=== PATIENT | female | born 1945 | race Caucasian/White ===

== ENCOUNTER 2018-02-25 15:09 | Emergency (ER) ==
[2018-02-25 15:15] VITALS: BP 134/66; TEMP 99; BMI 23.6
--- NOTE | 2018-02-25 16:09 | ED.PDOC ---
General ED Provider: Dr. ROSA AMBROCIO Chief Complaint: Foot Pain/Injury Stated Complaint: LEFT FOOT PAIN Time Seen by Physician: 15:18 (TRAUMA 1 DAY AGO ) Information Source: Patient Exam Limitations: No limitations Primary Care Provider: MAURY ROBLES Nursing and Triage Documentation Reviewed and Agree: Yes Does patient meet sepsis criteria?: Yes If yes, has appropriate treatment been initiated?: No (SEE WITH SHARON AT ALL TIMES ) System Inflammatory Response Syndrome: Not Applicable Sepsis Protocol: For patient's 13 years and over: Temp is 96.8 and below OR 101 and greater Pulse >90 BPM Resp >20/minute Acutely Altered Mental Status Are patient's symptoms suggestive of a new infection, such as: -Pneumonia -Skin, Soft Tissue -Endocarditis -UTI -Bone, Joint Infection -Implantable Device -Acute Abdominal Infection -Wound Infection -Meningitis -Blood Stream Catheter Infection -Unknown Musculoskeletal Complaint Exam - Ankle/Foot Complaint/Exam Location of Injury: Reports: Left, Foot Mechanism of Injury: Reports: Trauma Onset/Duration: 1 DAY Symptoms Are: Reports: Still present Onset of Pain: Reports: Hours Initial Severity: Mild Current Severity: Mild Location: Reports: Discrete (LEFT FOOT DORALY SEE PHOTO) Character: Reports: Aching Alleviating: Reports: Rest Aggravating: Reports: Movement Able to Bear Weight: Yes Associated Signs and Symptoms: Reports: Swelling, Redness. Denies: Bruising, Fever, Weakness, Numbness, Tingling Lower Extremity Findings: Present: Erythema, Warmth Achilles Tendon Abnormality: No Tenderness: Present: Midfoot, Metatarsals, Digits. Absent: Medial malleolus, Lateral malleolus, Heel, Achilles insertion Limited Range of Motion: Present: Inversion, Eversion Differential Diagnosis: Closed Fracture, Gout, Sprain, Strain Review of Systems - Review Of Systems Constitutional: Reports: No symptoms Eyes: Reports: No symptoms Ears, Nose, Mouth, Throat: Reports: No symptoms Respiratory: Reports: No symptoms Cardiac: Reports: No symptoms GI: Reports: No symptoms : Reports: No symptoms Musculoskeletal: Reports: Joint pain (FOOT PAIN) Skin: Reports: No symptoms Neurological: Reports: No symptoms Endocrine: Reports: No symptoms Hematologic/Lymphatic: Reports: No symptoms All Other Systems: Reviewed and Negative Past Medical History - Past Medical History Previously Healthy: No Endocrine: Reports: Dyslipidemia Cardiovascular: Reports: None Respiratory: Reports: COPD Hematological: Reports: None Gastrointestinal: Reports: None Genitourinary: Reports: None, CKD Neuro/Psych: Reports: None Musculoskeletal: Reports: None Cancer: Reports: None Last Menstrual Period: unknown - Surgical History General Surgical History: Reports: Cholecystectomy - Family History Family History: Reports: Unknown - Social History Smoking Status: Current some day smoker, Light tobacco smoker Hx Substance Use: No Alcohol Screening: None Physical Exam - Physical Exam Appearance: Well-appearing, No pain distress, Well-nourished Eyes: JONATAN, EOMI, Conjunctiva clear ENT: Ears normal, Nose normal, Oropharynx normal Respiratory: Airway patent, Breath sounds clear, Breath sounds equal, Respirations nonlabored Cardiovascular: RRR, Pulses normal, No rub, No murmur GI/: Soft, Nontender, No masses, Bowel sounds normal, No Organomegaly Musculoskeletal: Normal strength, ROM intact, No edema, No calf tenderness Skin: Warm, Dry, Normal color Neurological: Sensation intact, Motor intact, Reflexes intact, Cranial nerves intact, Alert, Oriented Psychiatric: Affect appropriate, Mood appropriate Interpretation - Radiology Interpretation Radiology Interpretation By: ED Physician Radiology Results: Negative Critical Care Note - Critical Care Note Total Time (mins): 0 Course - Course Orders, Labs, Meds: Lab Review 02/25/18 16:27 Uric Acid 6.8 H Orders Category Date Time Status URIC ACID Stat LAB 02/25/18 16:27 Completed Dexamethasone 4 mg/ml Inj [Decadron 4 mg/ml Sdv] MEDS 02/25/18 17:22 Discontinued 8 mg IM ONCE STA FOOT, LEFT 3 VIEWS Stat RADS 02/25/18 16:06 Completed Medications Discontinued Medications Generic Name Dose Route Start Last Admin Trade Name Sara PRN Reason Stop Dose Admin Dexamethasone Sodium Phosphate 8 mg 02/25/18 17:22 Decadron 4 Mg/Ml Sdv IM 02/25/18 17:23 ONCE STA Vital Signs: Temp Pulse Resp BP Pulse Ox 02/25/18 15:10 99.0 F 78 20 134/66 95 Departure - Departure Time of Disposition: 17:24 Disposition: HOME SELF-CARE Discharge Problem: Injury of foot Gout attack Qualifiers: Gout site: foot Gout etiology: unspecified cause Instructions: Arthralgia (ED), Swollen Joint (ED), Metatarsalgia (DC), Low Purine Diet (ED), Gout (ED) Condition: Good Pt referred to PMD for follow-up: Yes IPMP verified?: No Additional Instructions: Please call your Family Physician as soon as possible to schedule a follow-up appointment. Prescriptions: Hydrocodone/Acetaminophen [[place] 10-325 Tablet] 1 each PO Q8HR #10 tablet Allergies/Adverse Reactions: Allergies No Known Allergies Allergy (Unverified 02/25/18 15:16) Home Medications: Ambulatory Orders Losartan Potassium 100 mg PO DAILY 02/18/14 Fesoterodine Fumarate [Toviaz] 8 mg PO DAILY 04/20/15 Pantoprazole Sodium [Protonix] 40 mg PO BID 04/20/15 Sucralfate Susp [Carafate] 2 tsp PO ACHS 04/20/15 Aspirin [Aspir-Low] 81 mg PO DAILY 02/25/18 Hydrocodone/Acetaminophen [[place] 10-325 Tablet] 1 each PO Q8HR #10 tablet Disposition Discussed With: Patient
--- NOTE | 2018-02-25 16:48 | DI ---
EXAM: Left foot three view HISTORY: Pain COMPARISON: None FINDINGS: Lucency at the base of the fifth proximal phalanx may represent a fracture, though only s een on one-view. Small plantar and posterior calcaneal spurs. Mild osteoarthritis first MTP joint wi th joint space narrowing osteophyte formation. Dystrophic calcifications adjacent to first MTP joint. No focal soft tissue abnormality. IMPERSSION: Lucency at base of fifth proximal phalanx may represent a fracture, though only seen on one-view. Recommend correlation for point tenderness.
[2018-02-25] MEDS ORDERED: DECADRON 4 MG/ML SDV IM STA (17:22)
== END 2018-02-25 17:50 | disposition home or self-care (01) ==
LOC: ED 15:09
DX: M10.9 Gout, unspecified (principal); M79.672 Pain in left foot; F17.210 Nicotine dependence, cigarettes, uncomplicated
CPT/HCPCS: 36415; 84550; 96372; 99282

== ENCOUNTER 2022-03-24 12:38 | Inpatient (IN) ==
[2022-03-24 12:50] VITALS: BMI 24.8
[2022-03-24] MEDS ORDERED: ZOFRAN 4 MG/2 ML IM ONE (13:22)
[2022-03-24] MEDS ORDERED: TORADOL IM ONE (13:22)
--- NOTE | 2022-03-24 13:26 | ED.PDOC ---
General ED Provider: Dr. JENNY CASTREJON MD Chief Complaint: Abdominal Pain Stated Complaint: mild diffuse abdominal cramps for 6 weeks, nonrad, hx appendectomy and GB surg, no injury, +NVD, no blood in stool, no fever, +fatigue Time Seen by Provider: 03/24/22 12:49 Mode of Arrival: Wheelchair Information Source: Patient Primary Care Provider: MAURY ROBLES Nursing and Triage Documentation Reviewed and Agree: Yes Does patient meet sepsis criteria?: No System Inflammatory Response Syndrome: Not Applicable Sepsis Protocol: For patient's 13 years and over: Temp is 96.8 and below OR 101 and greater Pulse >90 BPM Resp >20/minute Acutely Altered Mental Status Are patient's symptoms suggestive of a new infection, such as: -Pneumonia -Skin, Soft Tissue -Endocarditis -UTI -Bone, Joint Infection -Implantable Device -Acute Abdominal Infection -Wound Infection -Meningitis -Blood Stream Catheter Infection -Unknown Review of Systems Review Of Systems Constitutional: Reports Malaise and Weakness; Denies Fever Eyes: Denies Vision change Ears, Nose, Mouth, Throat: Denies Throat pain Respiratory: Denies Short of air Cardiac: Denies Chest pain GI: Reports Abdominal pain, Diarrhea, Nausea and Vomiting; Denies Rectal bleeding : Reports Frequency Musculoskeletal: Denies Neck pain Skin: Denies Rash or Cyanosis Neurological: Denies Cognitive dysfunction All Other Systems: Other [facility] Social History Smoking and tobacco status: Current every day smoker Female Reproductive History Menstrual Hx Hysterectomy: Yes Hx Tubal Ligation: No Physical Exam Physical Exam Appearance: Reports Ill-appearing Ill-appearing: Mild Pain Distress: None Eyes: Reports JONATAN, EOMI and Conjunctiva clear ENT: Reports Oropharynx normal Neck: Supple Respiratory: Reports Airway patent, Breath sounds clear and Breath sounds equal Cardiovascular: Reports RRR GI/: Reports Soft and Tender (no rebound) Musculoskeletal: Reports ROM intact and No edema Skin: Reports Warm and Dry Neurological: Reports Alert and Oriented Psychiatric: Reports Affect appropriate Interpretation Radiology Interpretation Radiology Interpretation By: Radiologist Exam Interpreted: CT Scan Xray Comments: no obstruction or free air Critical Care Note Critical Care Note Total Critical Care Time (mins): 0 Course Course Hematology/Chemistry: 03/24/22 13:30 03/24/22 13:30 Orders, Labs, Meds: Lab Review 03/24/22 03/24/22 03/24/22 13:30 13:30 13:30 WBC 5.19 RBC 3.64 L Hgb 11.4 L Hct 32.2 L MCV 88.5 MCH 31.3 H MCHC 35.4 RDW Coeff of Alfred 12.0 Plt Count 259 Immature Gran % (Auto) 0.4 Neut % (Auto) 62.4 Lymph % (Auto) 25.4 Hardy % (Auto) 7.7 Eos % (Auto) 3.5 Baso % (Auto) 0.6 Neut # (Auto) 3.2 Lymph # (Auto) 1.3 Hardy # (Auto) 0.4 Eos # (Auto) 0.2 Baso # (Auto) 0.0 Immature Gran # (Auto) 0.0 PT 11.3 H INR 1.09 Sodium 136.3 Potassium 2.78 L* Chloride 104.1 Carbon Dioxide 21.5 L Anion Gap 13.48 BUN 23.3 H Creatinine 1.49 H Estimated GFR (MDRD) 34.00 BUN/Creatinine Ratio 15.63 Glucose 112.1 H Lactic Acid Calcium 9.64 Total Bilirubin 0.97 AST 22.3 ALT 14.0 Alkaline Phosphatase 94.0 Troponin I 0.037 Total Protein 7.47 Albumin 4.37 Globulin 3.10 Albumin/Globulin Ratio 1.40 Urine Color Urine Clarity Urine pH Ur Specific [place] Urine Protein Urine Glucose (UA) Urine Ketones Urine Blood Urine Nitrite Urine Bilirubin Urine Urobilinogen Ur Leukocyte Esterase Ur Squamous Epith Cells Hyaline Casts Urine Opiates Screen Ur Oxycodone Screen Urine Methadone Screen Ur Propoxyphene Screen Ur Barbiturates Screen U Tricyclic Antidepress Ur Phencyclidine Scrn Ur Amphetamine Screen U Methamphetamines Scrn U Benzodiazepines Scrn Urine Cocaine Screen U Cannabinoids Screen Plasma/Serum Alcohol < 10.0 SARS CoV-2 RNA Rapid MARLENE 03/24/22 03/24/22 03/24/22 13:30 13:55 14:28 WBC RBC Hgb Hct MCV MCH MCHC RDW Coeff of Alfred Plt Count Immature Gran % (Auto) Neut % (Auto) Lymph % (Auto) Hardy % (Auto) Eos % (Auto) Baso % (Auto) Neut # (Auto) Lymph # (Auto) Hardy # (Auto) Eos # (Auto) Baso # (Auto) Immature Gran # (Auto) PT INR Sodium Potassium Chloride Carbon Dioxide Anion Gap BUN Creatinine Estimated GFR (MDRD) BUN/Creatinine Ratio Glucose Lactic Acid 0.91 Calcium Total Bilirubin AST ALT Alkaline Phosphatase Troponin I Total Protein Albumin Globulin Albumin/Globulin Ratio Urine Color Yellow Urine Clarity Clear Urine pH 5.5 Ur Specific [place] >=1.030 Urine Protein 1+ H Urine Glucose (UA) Negative Urine Ketones Negative Urine Blood Negative Urine Nitrite Negative Urine Bilirubin 2+ H Urine Urobilinogen 1.0 H Ur Leukocyte Esterase Negative Ur Squamous Epith Cells 10-20 Hyaline Casts 30-50 Urine Opiates Screen Ur Oxycodone Screen Urine Methadone Screen Ur Propoxyphene Screen Ur Barbiturates Screen U Tricyclic Antidepress Ur Phencyclidine Scrn Ur Amphetamine Screen U Methamphetamines Scrn U Benzodiazepines Scrn Urine Cocaine Screen U Cannabinoids Screen Plasma/Serum Alcohol SARS CoV-2 RNA Rapid MARLENE Negative 03/24/22 14:28 WBC RBC Hgb Hct MCV MCH MCHC RDW Coeff of Alfred Plt Count Immature Gran % (Auto) Neut % (Auto) Lymph % (Auto) Hardy % (Auto) Eos % (Auto) Baso % (Auto) Neut # (Auto) Lymph # (Auto) Hardy # (Auto) Eos # (Auto) Baso # (Auto) Immature Gran # (Auto) PT INR Sodium Potassium Chloride Carbon Dioxide Anion Gap BUN Creatinine Estimated GFR (MDRD) BUN/Creatinine Ratio Glucose Lactic Acid Calcium Total Bilirubin AST ALT Alkaline Phosphatase Troponin I Total Protein Albumin Globulin Albumin/Globulin Ratio Urine Color Urine Clarity Urine pH Ur Specific [place] Urine Protein Urine Glucose (UA) Urine Ketones Urine Blood Urine Nitrite Urine Bilirubin Urine Urobilinogen Ur Leukocyte Esterase Ur Squamous Epith Cells Hyaline Casts Urine Opiates Screen Negative Ur Oxycodone Screen Negative Urine Methadone Screen Negative Ur Propoxyphene Screen Negative Ur Barbiturates Screen Negative U Tricyclic Antidepress Negative Ur Phencyclidine Scrn Negative Ur Amphetamine Screen Negative U Methamphetamines Scrn Negative U Benzodiazepines Scrn Negative Urine Cocaine Screen Negative U Cannabinoids Screen Negative Plasma/Serum Alcohol SARS CoV-2 RNA Rapid MARLENE Orders Category Date Time Status EKG-(ED ONLY) Stat CARDIO 03/24/22 13:22 Completed BLOOD ALCOHOL Stat LAB 03/24/22 13:30 Completed CBC W/ AUTO DIFF Stat LAB 03/24/22 13:30 Completed CMP [COMPREHENSIVE METABOLIC PANEL] Stat LAB 03/24/22 13:30 Completed DRUG SCREEN, URINE, RAPID Stat LAB 03/24/22 14:28 Completed LACTIC ACID Stat LAB 03/24/22 13:30 Completed PT WITH INR Stat LAB 03/24/22 13:30 Completed SARS COV-2 RNA RAPID MARLENE Stat LAB 03/24/22 13:55 Completed TROPONIN I Stat LAB 03/24/22 13:30 Completed URINALYSIS C & S IF INDICATED Stat LAB 03/24/22 14:28 Completed Ketorolac Tromethamine [Toradol] MEDS 03/24/22 13:22 Discontinued 30 mg IM ONCE ONE Ondansetron HCl/Pf [Zofran 4 mg/2 ml] MEDS 03/24/22 13:22 Discontinued 4 mg IM ONCE ONE Potassium Chloride [K-Dur] MEDS 03/24/22 14:06 Discontinued 40 meq PO ONCE ONE Sodium Chloride 0.9% [Sodium Chloride] 1,000 ml MEDS 03/24/22 14:[address]i n[address] IV BOLUS CT ABDOMEN/PELVIS WO CONTRAST Stat RADS 03/24/22 13:22 Completed Medications Discontinued Medications Generic Name Dose Route Start Last Admin Trade Name Freq PRN Reason Stop Dose Admin Sodium Chloride 1,000 mls @ 1,000 mls/hr 03/24/22 14:18 03/24/22 14:31 Sodium Chloride IV 03/24/22 15:17 1,000 mls/hr BOLUS STA Administration Ketorolac Tromethamine 30 mg 03/24/22 13:22 03/24/22 13:52 Ketorolac Tromethamine 30 Mg/Ml Vial IM 03/24/22 13:23 30 mg ONCE ONE Administration Ondansetron HCl 4 mg 03/24/22 13:22 03/24/22 13:51 Ondansetron Hcl/Pf 4 Mg/2 Ml Sdv IM 03/24/22 13:23 4 mg ONCE ONE Administration Potassium Chloride 40 meq 03/24/22 14:06 03/24/22 14:21 Potassium Chloride 20 Meq Tab PO 03/24/22 14:07 40 meq ONCE ONE Administration Vital Signs: Temp Pulse Resp BP Pulse Ox 03/24/22 12:43 97.8 F 93 H 18 118/69 95 Discharge Plan Discharge Patient Disposition: PLACED OBSERVATION Discharge Problem: Acute hypokalemia, Acute dehydration, Vomiting Prescriptions: No Action losartan 100 MG tablet 100 mg PO DAILY sucralfate 1 GM/10 ML suspension 2 tsp PO ACHS Label Comments: stopped taking on the due to up coming test pantoprazole [Protonix] 40 MG tablet,delayed release (DR/EC) 40 mg PO BID fesoterodine [Toviaz] 8 MG tablet extended release 24 hr 8 mg PO DAILY aspirin [Aspir-Low] 81 MG tablet,delayed release (DR/EC) 81 mg PO DAILY hydrocodone-acetaminophen [[place]] 1 EACH tablet 1 ea PO Q8HR Qty: 10 0RF Did you review [place] [employer] GRADER?: No ED Provider: JENNY CASTREJON Condition: Stable Physician Progress Note: []tele obs admit to the hospitalist for iv hydration and potassium replacement
[2022-03-24 13:39] LABS: BASOPHILS % (AUTO) 0.6 % (0.0-3.0); EOSINOPHILS # (AUTO) 0.2 K/ul (0.0-0.7); EOSINOPHILS % (AUTO) 3.5 % (0.0-7.0); HEMATOCRIT 32.2 % (37.0-47.0); HEMOGLOBIN 11.4 g/dl (12.0-16.0); IMMATURE GRANULOCYTE % (AUTO) 0.4 % (0.0-5.0); LYMPHOCYTES # (AUTO) 1.3 K/uL (0.60-3.4); LYMPHOCYTES % (AUTO) 25.4 (10.0-50.0); MEAN CORPUSCULAR HEMOGLOBIN 31.3 pg (27.0-31.0); MEAN CORPUSCULAR HGB CONC 35.4 (31.8-35.4); MEAN CORPUSCULAR VOLUME 88.5 fl (81.0-99.0); MONOCYTES # (AUTO) 0.4 K/uL (0.4-2.0); MONOCYTES % (AUTO) 7.7 (0-10); NEUTROPHILS # (AUTO) 3.2 K/ul (2.0-6.9); NEUTROPHILS % (AUTO) 62.4 % (42.2-75.2); PLATELET COUNT 259 10^3/uL (140-440); RED BLOOD COUNT 3.64 10^6/ul (4.20-5.40); WHITE BLOOD COUNT 5.19 K/ul (4.6-10.2)
[2022-03-24 13:51] LABS: PROTHROMBIN TIME 11.3 SEC (9.3-11.0)
[2022-03-24 13:52] LABS: ALBUMIN 4.37 g/dL (3.5-5.0); ASPARTATE AMINO TRANSFERASE 22.3 U/L (14-36); BILIRUBIN,TOTAL 0.97 mg/dL (0.2-1.3); BLOOD UREA NITROGEN 23.3 mg/dL (7-17); CALCIUM 9.64 mg/dL (8.4-10.2); CARBON DIOXIDE 21.5 mmol/L (22-30.0); CHLORIDE 104.1 mmol/L (98-107); CREATININE 1.49 mg/dL (0.60-1.30); GLUCOSE 112.1 mg/dL (74-106); SODIUM 136.3 mmol/L (134.5-145); TOTAL PROTEIN 7.47 g/dL (6.3-8.2)
[2022-03-24 14:01] LABS: BLOOD ALCOHOL < 10.0 mg/dL (0.0-50.0); POTASSIUM 2.78 mmol/L (3.5-5.1)
[2022-03-24 14:02] LABS: TROPONIN I 0.037 ng/ml (0.0000-0.120)
[2022-03-24] MEDS ORDERED: K-DUR PO ONE (14:06)
[2022-03-24] MEDS ORDERED: SODIUM CHLORIDE 1,000 ML IV STA (14:18)
[2022-03-24 14:50] LABS: BILIRUBIN,URINE 2+ (NEGATIVE); CLARITY,URINE Clear (CLEAR); COLOR,URINE Yellow (YELLOW); GLUCOSE, URINE (UA) Negative (NEGATIVE); KETONES,URINE Negative (NEGATIVE); LEUKOCYTE ESTERASE ,URINE Negative (NEGATIVE); NITRITE,URINE Negative (NEGATIVE); PH,URINE 5.5 (5-9); PROTEIN,URINE 1+ (NEGATIVE); URINE, BLOOD Negative (NEGATIVE)
[2022-03-24 14:57] LABS: HYALINE CASTS, URINE 30-50 (NOT PRESENT)
[2022-03-24 14:59] LABS: AMPHETAMINE SCREEN,URINE NEGATIVE (NEGATIVE); BARBITURATE SCREEN,URINE NEGATIVE (NEGATIVE); BENZODIAZEPINES SCREEN,URINE NEGATIVE (NEGATIVE); CANNABINOID SCREEN,URINE NEGATIVE (NEGATIVE); COCAIN SCREEN,URINE NEGATIVE (NEGATIVE); METHADONE URINE SCREEN NEGATIVE (NEGATIVE); METHAMPHETAMINES SCREEN,URINE NEGATIVE (NEGATIVE); OPIATE SCREEN,URINE NEGATIVE (NEGATIVE); OXYCODONE URINE SCREEN NEGATIVE (NEGATIVE); PHENCYCLIDINE SCREEN,URINE NEGATIVE (NEGATIVE); PROPOXYPHENE URINE SCREEN NEGATIVE (NEGATIVE); TRICYCLIC ANTIDEPRESSANTS URIN NEGATIVE (NEGATIVE)
--- NOTE | 2022-03-24 15:28 | CT ---
EXAM: CT abdomen pelvis without intravenous contrast 03/24/2022. Sagittal and coronal reformatted i mages obtained HISTORY: Abdominal pain. Nausea vomiting COMPARISON: 04/20/2015 FINDINGS: The liver shows no acute abnormality. The gallbladder has been removed. The adrenal glan ds and kidneys show no acute abnormality. There is no hydronephrosis. Bilateral benign-appearing re nal cysts. The spleen and pancreas show no acute abnormality. There is no bowel obstruction. No evidence of appendicitis. Unremarkable urinary bladder. No free air. No free fluid. IMPRESSION: 1. No urinary or bowel obstruction 2. Benign-appearing renal cysts 3. Status post cholecystectomy. 4. No acute inflammatory process identified within the limitation of a noncontrast enhanced examinat ion. All CT scans are performed using dose optimization techniques as appropriate to the performed exam an d include at least one of the following: Automated exposure control, adjustment of the mA and/or kV according t o size, and the use of iterative reconstruction technique.
[2022-03-24] MEDS ORDERED: ZOFRAN 4 MG/2 ML IVP PRN (15:41)
[2022-03-24] MEDS: PROTONIX PO SCH (18:56)
[2022-03-24] MEDS: K-DUR PO SCH (18:56)
[2022-03-24] MEDS: SODIUM CHLORIDE 1,000 ML IV SCH (18:56)
[2022-03-24] MEDS: DITROPAN PO SCH (20:17)
[2022-03-24] MEDS: NAMENDA PO SCH (20:17)
[2022-03-24] MEDS: BENTYL PO SCH (20:17)
[2022-03-24] MEDS ORDERED: NORCO 10-325 PO SCH (21:00)
[2022-03-24] MEDS ORDERED: ATIVAN PO ONE (23:22)
[2022-03-25 05:11] LABS: BASOPHILS % (AUTO) 0.6 % (0.0-3.0); EOSINOPHILS # (AUTO) 0.2 K/ul (0.0-0.7); EOSINOPHILS % (AUTO) 3.4 % (0.0-7.0); HEMATOCRIT 31.7 % (37.0-47.0); HEMOGLOBIN 11.1 g/dl (12.0-16.0); IMMATURE GRANULOCYTE % (AUTO) 0.2 % (0.0-5.0); LYMPHOCYTES # (AUTO) 1.5 K/uL (0.60-3.4); LYMPHOCYTES % (AUTO) 29.4 (10.0-50.0); MEAN CORPUSCULAR HEMOGLOBIN 31.2 pg (27.0-31.0); MONOCYTES # (AUTO) 0.4 K/uL (0.4-2.0); MONOCYTES % (AUTO) 7.5 (0-10); NEUTROPHILS # (AUTO) 3.1 K/ul (2.0-6.9); NEUTROPHILS % (AUTO) 58.9 % (42.2-75.2); PLATELET COUNT 239 10^3/uL (140-440); RED BLOOD COUNT 3.56 10^6/ul (4.20-5.40); WHITE BLOOD COUNT 5.23 K/ul (4.6-10.2)
[2022-03-25 05:25] LABS: ALANINE AMINOTRANSFERASE 12.6 U/L (0-35); ALBUMIN 3.87 g/dL (3.5-5.0); ALKALINE PHOSPHATASE 83.9 U/L (53-141); ASPARTATE AMINO TRANSFERASE 23.9 U/L (14-36); BILIRUBIN,TOTAL 0.83 mg/dL (0.2-1.3); BLOOD UREA NITROGEN 20.2 mg/dL (7-17); CALCIUM 8.96 mg/dL (8.4-10.2); CARBON DIOXIDE 21.6 mmol/L (22-30.0); CHLORIDE 109.9 mmol/L (98-107); CREATININE 1.3 mg/dL (0.60-1.30); GLUCOSE 94.9 mg/dL (74-106); MAGNESIUM 1.39 mg/dL (1.6-2.3); POTASSIUM 3.3 mmol/L (3.5-5.1); SODIUM 139.9 mmol/L (134.5-145); TOTAL PROTEIN 6.72 g/dL (6.3-8.2)
[2022-03-25] MEDS: PROTONIX PO SCH ×2 (05:49→16:49)
[2022-03-25] MEDS: SODIUM CHLORIDE 1,000 ML IV SCH ×2 (05:57→18:34)
[2022-03-25] MEDS: ASPIRIN EC PO SCH (08:07)
[2022-03-25] MEDS: NAMENDA PO SCH ×2 (08:07→20:12)
[2022-03-25] MEDS: NEURONTIN PO SCH (08:07)
[2022-03-25] MEDS: K-DUR PO SCH ×2 (08:07→16:49)
[2022-03-25] MEDS: BENTYL PO SCH ×3 (08:07→20:12)
[2022-03-25] MEDS: DITROPAN PO SCH ×2 (08:07→20:12)
--- NOTE | 2022-03-25 08:53 | PCM.PROG ---
Date Seen by Provider: 03/25/22 Time Seen by Provider: 08:00 Subjective: Patient confused overnight and not sleeping. She was found to be out of bed and wandering in the [place]. No complaints. Objective: Vitals: T=97.8 F, P=92, R=18, BC=480/70, SPO2=96 Patient somnolent, though arouses easily. HEENT: [] Neck: [] Lungs: [] Clear and BS equal CVS: []RRR Abdomen: [] Soft and nontender. Nondistended. Extremities: [] Neurological: [] Confused. Cooperative. Skin: [] Lab/Tests/Diagnostic Imaging: [] (1) Vomiting: Status: Acute Code(s): R11.10 - Vomiting, unspecified SNOMED Code(s): 871290863 Assessment: Vomiting resolved and patient tolerating PO intake. (2) Acute hypokalemia: Status: Acute Code(s): E87.6 - Hypokalemia SNOMED Code(s): 70486112 Assessment: Potassium 3.3 this morning. (3) Acute dehydration: Status: Acute Code(s): E86.0 - Dehydration SNOMED Code(s): 77101100 Assessment: Hydration level improved. Continue IV fluids today. (4) Low magnesium level: Status: Acute Code(s): R79.0 - Abnormal level of blood mineral SNOMED Code(s): 479527901 (5) Acute delirium: Status: Acute Code(s): R41.0 - Disorientation, unspecified SNOMED Code(s): 9719758 Plan: Replete potassium and magnesium. Continue IV fluids yet today. Will add remeron for delirium.
[2022-03-25] MEDS ORDERED: COZAAR PO SCH (09:00)
--- NOTE | 2022-03-25 09:01 | PCM.PROG ---
Objective: Vitals: T=97.8 F, P=92, R=18, OH=914/70, SPO2=96 HEENT: [] Neck: [] Lungs: [] CVS: [] Abdomen: [] Extremities: [] Neurological: [] Skin: [] Lab/Tests/Diagnostic Imaging: [] (1) Vomiting: Status: Acute Code(s): R11.10 - Vomiting, unspecified SNOMED Code(s): 108297627 (2) Acute hypokalemia: Status: Acute Code(s): E87.6 - Hypokalemia SNOMED Code(s): 20432219 (3) Acute dehydration: Status: Acute Code(s): E86.0 - Dehydration SNOMED Code(s): 26365378 (4) Low magnesium level: Status: Acute Code(s): R79.0 - Abnormal level of blood mineral SNOMED Code(s): 518222556 (5) Acute delirium: Status: Acute Code(s): R41.0 - Disorientation, unspecified SNOMED Code(s): 5970420
[2022-03-25] MEDS ORDERED: MAG-OX PO ONE (09:04)
[2022-03-25] MEDS: REMERON PO SCH (20:12)
[2022-03-25] MEDS: TYLENOL PO PRN (20:12)
[2022-03-26 05:17] LABS: BASOPHILS % (AUTO) 0.6 % (0.0-3.0); EOSINOPHILS # (AUTO) 0.2 K/ul (0.0-0.7); EOSINOPHILS % (AUTO) 3.7 % (0.0-7.0); HEMATOCRIT 32.1 % (37.0-47.0); HEMOGLOBIN 11.1 g/dl (12.0-16.0); IMMATURE GRANULOCYTE % (AUTO) 0.6 % (0.0-5.0); LYMPHOCYTES # (AUTO) 1.9 K/uL (0.60-3.4); LYMPHOCYTES % (AUTO) 35.5 (10.0-50.0); MEAN CORPUSCULAR HEMOGLOBIN 31.1 pg (27.0-31.0); MEAN CORPUSCULAR HGB CONC 34.6 (31.8-35.4); MEAN CORPUSCULAR VOLUME 89.9 fl (81.0-99.0); MONOCYTES # (AUTO) 0.3 K/uL (0.4-2.0); MONOCYTES % (AUTO) 5.9 (0-10); NEUTROPHILS # (AUTO) 2.9 K/ul (2.0-6.9); NEUTROPHILS % (AUTO) 53.7 % (42.2-75.2); PLATELET COUNT 240 10^3/uL (140-440); RDW COEFFICIENT OF VARIATION 12.2 % (11.6-14.8); RED BLOOD COUNT 3.57 10^6/ul (4.20-5.40); WHITE BLOOD COUNT 5.44 K/ul (4.6-10.2)
[2022-03-26] MEDS: PROTONIX PO SCH ×2 (05:36→16:45)
[2022-03-26 05:43] LABS: ALANINE AMINOTRANSFERASE 12.1 U/L (0-35); ALBUMIN 3.75 g/dL (3.5-5.0); ALKALINE PHOSPHATASE 85.5 U/L (53-141); ASPARTATE AMINO TRANSFERASE 25.1 U/L (14-36); BILIRUBIN,TOTAL 0.72 mg/dL (0.2-1.3); BLOOD UREA NITROGEN 12.8 mg/dL (7-17); CALCIUM 8.73 mg/dL (8.4-10.2); CARBON DIOXIDE 21.4 mmol/L (22-30.0); CHLORIDE 111.1 mmol/L (98-107); CREATININE 1.13 mg/dL (0.60-1.30); GLUCOSE 84.3 mg/dL (74-106); POTASSIUM 3.62 mmol/L (3.5-5.1); SODIUM 139.7 mmol/L (134.5-145); TOTAL PROTEIN 6.46 g/dL (6.3-8.2)
[2022-03-26] MEDS: ASPIRIN EC PO SCH (09:21)
[2022-03-26] MEDS: DITROPAN PO SCH ×2 (09:21→20:20)
[2022-03-26] MEDS: NEURONTIN PO SCH (09:21)
[2022-03-26] MEDS: NAMENDA PO SCH ×2 (09:21→20:20)
[2022-03-26] MEDS: K-DUR PO SCH ×2 (09:21→16:45)
[2022-03-26] MEDS: BENTYL PO SCH ×3 (09:21→20:20)
[2022-03-26] MEDS: SODIUM CHLORIDE 1,000 ML IV SCH (10:48)
--- NOTE | 2022-03-26 17:06 | PCM.PROG ---
Date Seen by Provider: 03/26/22 Time Seen by Provider: 17:02 Subjective: pt confused, believes the month is April, doesn't know who the President is Objective: Vitals: T=97.8 F, P=74, R=18, AE=876/80, CJO7=417 HEENT: []conjunctiva clear Neck: []supple Lungs: [] clear CVS: []RRR Abdomen: []soft and nontender Extremities: []warm and dry Neurological: []awake, oriented x 1 Skin: []pink Lab/Tests/Diagnostic Imaging: [] K+ 3.6 03/26 (1) Vomiting: Status: Acute Code(s): R11.10 - Vomiting, unspecified SNOMED Code(s): 721886605 (2) Acute hypokalemia: Status: Acute Code(s): E87.6 - Hypokalemia SNOMED Code(s): 65769978 (3) Acute dehydration: Status: Acute Code(s): E86.0 - Dehydration SNOMED Code(s): 38646066 (4) Low magnesium level: Status: Acute Code(s): R79.0 - Abnormal level of blood mineral SNOMED Code(s): 017111993 (5) Acute delirium: Status: Acute Code(s): R41.0 - Disorientation, unspecified SNOMED Code(s): 1050632 Plan: since the pt is confused and 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
--- NOTE | 2022-03-26 19:03 | CT ---
EXAM: CT head without contrast. HISTORY: Altered mental status. PROCEDURE: Contiguous axial CT images of the head without contrast with coronal and sagittal reforma ts. FINDINGS: There is diffuse cerebral atrophy. The ventricles and basal cisterns are normal in size an d configuration. No evidence of mass or midline shift. No intracranial hemorrhage or evidence of la rge vessel infarct. No extra-axial fluid collection. There are chronic small vessel ischemic change s in the white matter. There is mucosal thickening in the paranasal sinuses. The mastoid air cells are normal in appearance. Redemonstrated is 1.4 x 0.6 cm nodule in the right parietal scalp compared with CT of 02/18/2014. Impression: No intracranial hemorrhage or evidence of large vessel infarct. Chronic small vessel ischemic changes. Diffuse cerebral atrophy. Paranasal sinusitis. Chronic nodule in the right parietal scalp. All CT scans are performed using dose optimization techniques as appropriate to the performed exam an d include at least one of the following: Automated exposure control, adjustment of the mA and/or kV according t o size, and the use of iterative reconstruction technique.
[2022-03-26] MEDS: REMERON PO SCH (20:20)
[2022-03-27] MEDS: SODIUM CHLORIDE 1,000 ML IV SCH ×2 (01:45→16:28)
[2022-03-27] MEDS ORDERED: ATIVAN PO ONE (02:11)
[2022-03-27 05:03] LABS: BASOPHILS % (AUTO) 0.4 % (0.0-3.0); EOSINOPHILS # (AUTO) 0.2 K/ul (0.0-0.7); EOSINOPHILS % (AUTO) 3.9 % (0.0-7.0); HEMATOCRIT 31.9 % (37.0-47.0); HEMOGLOBIN 11.3 g/dl (12.0-16.0); IMMATURE GRANULOCYTE % (AUTO) 0.4 % (0.0-5.0); LYMPHOCYTES # (AUTO) 1.4 K/uL (0.60-3.4); LYMPHOCYTES % (AUTO) 28.2 (10.0-50.0); MEAN CORPUSCULAR HEMOGLOBIN 31.7 pg (27.0-31.0); MEAN CORPUSCULAR HGB CONC 35.4 (31.8-35.4); MEAN CORPUSCULAR VOLUME 89.4 fl (81.0-99.0); MONOCYTES # (AUTO) 0.4 K/uL (0.4-2.0); MONOCYTES % (AUTO) 7.1 (0-10); NEUTROPHILS # (AUTO) 2.9 K/ul (2.0-6.9); PLATELET COUNT 235 10^3/uL (140-440); RDW COEFFICIENT OF VARIATION 12.3 % (11.6-14.8); RED BLOOD COUNT 3.57 10^6/ul (4.20-5.40)
[2022-03-27] MEDS ORDERED: VASOTEC IV IVP STA (05:12)
[2022-03-27 05:17] LABS: ALANINE AMINOTRANSFERASE 11.6 U/L (0-35); ALBUMIN 3.79 g/dL (3.5-5.0); ALKALINE PHOSPHATASE 78.6 U/L (53-141); ASPARTATE AMINO TRANSFERASE 24.7 U/L (14-36); BILIRUBIN,TOTAL 0.7 mg/dL (0.2-1.3); BLOOD UREA NITROGEN 7.4 mg/dL (7-17); CALCIUM 8.81 mg/dL (8.4-10.2); CARBON DIOXIDE 24.6 mmol/L (22-30.0); CHLORIDE 109.6 mmol/L (98-107); CREATININE 0.92 mg/dL (0.60-1.30); GLUCOSE 95.7 mg/dL (74-106); POTASSIUM 3.65 mmol/L (3.5-5.1); SODIUM 139.1 mmol/L (134.5-145); TOTAL PROTEIN 6.61 g/dL (6.3-8.2)
[2022-03-27] MEDS: PROTONIX PO SCH ×2 (05:40→17:29)
[2022-03-27] MEDS ORDERED: COZAAR PO SCH (09:00)
[2022-03-27] MEDS: ASPIRIN EC PO SCH (09:27)
[2022-03-27] MEDS: BENTYL PO SCH ×3 (09:27→20:15)
[2022-03-27] MEDS: NEURONTIN PO SCH (09:28)
[2022-03-27] MEDS: NAMENDA PO SCH ×2 (09:29→20:15)
[2022-03-27] MEDS: K-DUR PO SCH ×2 (09:29→17:30)
[2022-03-27] MEDS: DITROPAN PO SCH ×2 (09:30→20:15)
[2022-03-27] MEDS ORDERED: MAG-OX PO ONE (09:35)
--- NOTE | 2022-03-27 10:18 | PCM.PROG ---
Date Seen by Provider: 03/27/22 Time Seen by Provider: 09:00 Subjective: Patient has no complaints. Diarrhea resolved and tolerating PO intake. Delirium improved. Objective: Vitals: T=97.4 F, P=84, R=9, ED=512/94, SPO2=98 Patient alert and answers simple questions and follows simple commands. She is confused. HEENT: [] Neck: [] Lungs: [] Clear. BS equal. CVS: [] RRR Abdomen: []Abdomen soft, nondistended and nontender. Extremities: [] Neurological: []Patient at baseline mental status. Skin: [] Lab/Tests/Diagnostic Imaging: [] (1) Vomiting: Status: Acute Code(s): R11.10 - Vomiting, unspecified SNOMED Code(s): 515937300 Assessment: resolved (2) Acute hypokalemia: Status: Acute Code(s): E87.6 - Hypokalemia SNOMED Code(s): 37365986 Assessment: Potassium repleted (3) Acute dehydration: Status: Acute Code(s): E86.0 - Dehydration SNOMED Code(s): 34521904 Assessment: Euvolemic (4) Low magnesium level: Status: Acute Code(s): R79.0 - Abnormal level of blood mineral SNOMED Code(s): 103040893 Assessment: Magnesium still mildly decreased. (5) Acute delirium: Status: Acute Code(s): R41.0 - Disorientation, unspecified SNOMED Code(s): 9295592 Assessment: Delirium improved with remeron. Plan: Magnesium 800mg oral prior to discharge. Delirium resolved. 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 Believe that they would benefit from home health;not certain that she can provide appropriate care for herself or her . Will also ask for OT and PT evaluation and home nursing to see.
--- NOTE | 2022-03-27 10:51 | PCM.DC ---
Final Diagnosis: vomiting and diarrhea acute dehydration hypokalemia acute delirium low magnesium Physical Exam Appearance: Well-appearing, No pain distress and Other (Alert and follows commands. Confused.) Ill-appearing: None Pain Distress: None Eyes: JONATAN and EOMI ENT: Nose normal and Oropharynx normal Neck: Supple Respiratory: Airway patent, Breath sounds clear and Breath sounds equal Cardiovascular: RRR, No rub and No murmur GI/: Soft, Nontender, No masses and Bowel sounds normal Musculoskeletal: Normal strength, ROM intact and No edema Skin: Warm, Dry and Normal color Neurological: Motor intact and Alert Psychiatric: Affect appropriate and Mood appropriate (1) Vomiting: Status: Acute Code(s): R11.10 - Vomiting, unspecified SNOMED Code(s): 058282991 (2) Acute hypokalemia: Status: Acute Code(s): E87.6 - Hypokalemia SNOMED Code(s): 15998795 (3) Acute dehydration: Status: Acute Code(s): E86.0 - Dehydration SNOMED Code(s): 56886121 (4) Low magnesium level: Status: Acute Code(s): R79.0 - Abnormal level of blood mineral SNOMED Code(s): 674402748 (5) Acute delirium: Status: Acute Code(s): R41.0 - Disorientation, unspecified SNOMED Code(s): 4741793 Reason for Hospitalization: Patient admitted with vomiting and diarrhea. She had acute dehydration and hypokalemia as well as low magnesium. Prognosis/Condition at Discharge: Condition at discharge was good. Medications at Discharge: Patient discharged on the same medications that she was admitted on. Discharge Disposition: Home Hospital Course: Patient received IV fluids for her acute dehydration. She also had her potassium and magnesium repleted. She does have a history of dementia and did develop acute delirium. The delirium improved with remeron at bedtime to reestablish her normal sleep wake cycle. Plan: Patient to be discharged to home. 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 Believe that they would benefit from home health, home nursing as well as PT/OT evaluation.
[2022-03-27] MEDS: REMERON PO SCH (20:15)
[2022-03-27] MEDS: TYLENOL PO PRN (20:15)
[2022-03-28] MEDS: SODIUM CHLORIDE 1,000 ML IV SCH ×2 (01:03→15:35)
[2022-03-28 05:04] LABS: BASOPHILS % (AUTO) 0.4 % (0.0-3.0); EOSINOPHILS # (AUTO) 0.2 K/ul (0.0-0.7); EOSINOPHILS % (AUTO) 4.6 % (0.0-7.0); HEMOGLOBIN 10.4 g/dl (12.0-16.0); IMMATURE GRANULOCYTE % (AUTO) 0.4 % (0.0-5.0); LYMPHOCYTES # (AUTO) 1.7 K/uL (0.60-3.4); LYMPHOCYTES % (AUTO) 35.6 (10.0-50.0); MEAN CORPUSCULAR HEMOGLOBIN 31.4 pg (27.0-31.0); MEAN CORPUSCULAR HGB CONC 34.7 (31.8-35.4); MEAN CORPUSCULAR VOLUME 90.6 fl (81.0-99.0); MONOCYTES # (AUTO) 0.3 K/uL (0.4-2.0); MONOCYTES % (AUTO) 7.1 (0-10); NEUTROPHILS # (AUTO) 2.5 K/ul (2.0-6.9); NEUTROPHILS % (AUTO) 51.9 % (42.2-75.2); PLATELET COUNT 208 10^3/uL (140-440); RDW COEFFICIENT OF VARIATION 12.4 % (11.6-14.8); RED BLOOD COUNT 3.31 10^6/ul (4.20-5.40)
[2022-03-28 05:17] LABS: ALANINE AMINOTRANSFERASE 9.8 U/L (0-35); ALBUMIN 3.37 g/dL (3.5-5.0); ALKALINE PHOSPHATASE 71.2 U/L (53-141); ASPARTATE AMINO TRANSFERASE 22.5 U/L (14-36); BILIRUBIN,TOTAL 0.69 mg/dL (0.2-1.3); BLOOD UREA NITROGEN 6.1 mg/dL (7-17); CALCIUM 8.76 mg/dL (8.4-10.2); CARBON DIOXIDE 22.6 mmol/L (22-30.0); CHLORIDE 112.3 mmol/L (98-107); CREATININE 0.98 mg/dL (0.60-1.30); GLUCOSE 96.2 mg/dL (74-106); POTASSIUM 4.06 mmol/L (3.5-5.1); SODIUM 140.3 mmol/L (134.5-145); TOTAL PROTEIN 6.12 g/dL (6.3-8.2)
[2022-03-28] MEDS: PROTONIX PO SCH ×2 (05:30→17:11)
[2022-03-28] MEDS: DITROPAN PO SCH ×2 (08:07→20:21)
[2022-03-28] MEDS: NAMENDA PO SCH ×2 (08:07→20:21)
[2022-03-28] MEDS: NEURONTIN PO SCH (08:07)
[2022-03-28] MEDS: BENTYL PO SCH (08:07)
[2022-03-28] MEDS: K-DUR PO SCH ×2 (08:07→17:12)
[2022-03-28] MEDS ORDERED: MAGNESIUM SULFATE 1 GM/2 ML VIAL 2 GM in SODIUM CHLORIDE 100ML 100 ML IV ONE (09:45)
[2022-03-28] MEDS ORDERED: MAGNESIUM SULFATE 1 GM/100 ML D5W 2 GM/200 ML BAG IV ONE (10:30)
--- NOTE | 2022-03-28 17:15 | PCM.PROG ---
Date Seen by Provider: 03/28/22 Time Seen by Provider: 12:20 Subjective: Nursing noted no new changes - wandering , etc. Pt asked about discharge plans . 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 She is her own POA. I suggested she wait until Wednesday when [facility] services / case managment can help bridge the disposition. Objective: Vitals: T=98.7 F, P=66, R=18, PA=864/69, SPO2=98 HEENT: [no icterus ] Neck: [supple] Lungs: [clear bilateral] CVS: [ regular without murmur ] Abdomen: [soft ] Extremities: [FROM] Neurological: [Knows place and year not day ] Skin: [no rash ] Lab/Tests/Diagnostic Imaging: [] (1) Vomiting: Status: Acute Code(s): R11.10 - Vomiting, unspecified SNOMED Code(s): 203316903 (2) Acute hypokalemia: Status: Acute Code(s): E87.6 - Hypokalemia SNOMED Code(s): 49040475 (3) Acute dehydration: Status: Acute Code(s): E86.0 - Dehydration SNOMED Code(s): 32480771 (4) Low magnesium level: Status: Acute Code(s): R79.0 - Abnormal level of blood mineral SNOMED Code(s): 492352313 (5) Acute delirium: Status: Acute Code(s): R41.0 - Disorientation, unspecified SNOMED Code(s): 4795123 Plan: 1. for rising Chloride - switch IV to LR and repeat BMP am 2.For low Mag - 2 gram rider and recheck later afternoon - corrected . Will repeat tomorrow - possibly nutritional related 3.DVT prevention - Lovenox 40mg subq 4.GI - protonix 5.Memory issues - add TSH / Free T4 6. For delirium reduction - d/c bentyl , reduce oxybutinin to 2.5 mg po bid 7. Discharge noted in record not active - patient agrees to stay - Wednesday homeworker / manager golf for discharge assistance 8. Tramadol not continued while in- patient
[2022-03-28] MEDS: LACTATED RINGERS 1,000 ML IV SCH (17:36)
[2022-03-28] MEDS: LOVENOX SUBCUT SCH (20:21)
[2022-03-28] MEDS: REMERON PO SCH (20:21)
[2022-03-28] MEDS: TYLENOL PO PRN (22:45)
[2022-03-29 05:04] LABS: BASOPHILS % (AUTO) 0.7 % (0.0-3.0); EOSINOPHILS # (AUTO) 0.2 K/ul (0.0-0.7); HEMATOCRIT 30.4 % (37.0-47.0); HEMOGLOBIN 10.6 g/dl (12.0-16.0); IMMATURE GRANULOCYTE % (AUTO) 0.2 % (0.0-5.0); LYMPHOCYTES # (AUTO) 1.7 K/uL (0.60-3.4); LYMPHOCYTES % (AUTO) 39.7 (10.0-50.0); MEAN CORPUSCULAR HEMOGLOBIN 31.5 pg (27.0-31.0); MEAN CORPUSCULAR HGB CONC 34.9 (31.8-35.4); MEAN CORPUSCULAR VOLUME 90.5 fl (81.0-99.0); MONOCYTES # (AUTO) 0.3 K/uL (0.4-2.0); MONOCYTES % (AUTO) 7.4 (0-10); PLATELET COUNT 214 10^3/uL (140-440); RDW COEFFICIENT OF VARIATION 12.5 % (11.6-14.8); RED BLOOD COUNT 3.36 10^6/ul (4.20-5.40); WHITE BLOOD COUNT 4.21 K/ul (4.6-10.2)
[2022-03-29 05:15] LABS: BLOOD UREA NITROGEN 4.9 mg/dL (7-17); CALCIUM 8.75 mg/dL (8.4-10.2); CARBON DIOXIDE 25.8 mmol/L (22-30.0); CHLORIDE 109.3 mmol/L (98-107); CREATININE 0.99 mg/dL (0.60-1.30); MAGNESIUM 1.8 mg/dL (1.6-2.3); POTASSIUM 4.17 mmol/L (3.5-5.1); SODIUM 138.6 mmol/L (134.5-145)
[2022-03-29] MEDS: PROTONIX PO SCH ×2 (05:37→17:15)
[2022-03-29 05:45] LABS: THYROID STIMULATING HORMONE 2.13 uIU/L (0.465-4.68)
[2022-03-29] MEDS: LACTATED RINGERS 1,000 ML IV SCH ×2 (07:39→19:41)
[2022-03-29] MEDS: NAMENDA PO SCH ×2 (08:44→20:26)
[2022-03-29] MEDS: K-DUR PO SCH ×2 (08:44→17:16)
[2022-03-29] MEDS: DITROPAN PO SCH ×2 (08:44→20:26)
[2022-03-29] MEDS: NEURONTIN PO SCH (08:44)
--- NOTE | 2022-03-29 19:00 | PCM.PROG ---
Date Seen by Provider: 03/29/22 Time Seen by Provider: 01:30 Subjective: Nursing reports pt more mobile and active , more alert. No night events Pt reports to me she remembers better . She may have had some issues with tramadol and didnt like the way it made her feel . Her family member Tyler is caring for her disabled brother. She is motivated to going home tomorrow.I mentioned getting her , her family , case management on board to help with the disposition to maximize services available to patient. At this time she is her own POA and does not want any placement. 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 ] Lab/Tests/Diagnostic Imaging: [] (1) Vomiting: Status: Acute Code(s): R11.10 - Vomiting, unspecified SNOMED Code(s): 973502068 (2) Acute hypokalemia: Status: Acute Code(s): E87.6 - Hypokalemia SNOMED Code(s): 23307167 (3) Acute dehydration: Status: Acute Code(s): E86.0 - Dehydration SNOMED Code(s): 62293765 (4) Low magnesium level: Status: Acute Code(s): R79.0 - Abnormal level of blood mineral SNOMED Code(s): 966134504 (5) Acute delirium: Status: Acute Code(s): R41.0 - Disorientation, unspecified SNOMED Code(s): 6866747 Plan: 1.acute delirium - resolved , possibly secondary to prior N& V followed by volume depletion, electolyte depletion , and medications taken at that time. Reduced oxybutyrin from 5 mg to 2.5 mg PO bid, d/c dicyclomine 10mg TID, D/C tramadol. 2.Low Magnesium - replaced , no additional added PO , trend mag tomorrow for nee d for home PO tab 3.Muscle weakness / tightness - Resolved 4.Acute hypokalemia -resolved . trend K tomorrow to determine if PO home med indicated 5.Report to Dr Ewing at shift change
[2022-03-29] MEDS: LOVENOX SUBCUT SCH (20:25)
[2022-03-29] MEDS: REMERON PO SCH (20:26)
[2022-03-30 05:10] LABS: BASOPHILS % (AUTO) 0.5 % (0.0-3.0); EOSINOPHILS # (AUTO) 0.2 K/ul (0.0-0.7); EOSINOPHILS % (AUTO) 4.7 % (0.0-7.0); HEMATOCRIT 28.8 % (37.0-47.0); IMMATURE GRANULOCYTE % (AUTO) 0.3 % (0.0-5.0); LYMPHOCYTES # (AUTO) 1.5 K/uL (0.60-3.4); LYMPHOCYTES % (AUTO) 38.6 (10.0-50.0); MEAN CORPUSCULAR HEMOGLOBIN 31.2 pg (27.0-31.0); MEAN CORPUSCULAR HGB CONC 34.7 (31.8-35.4); MEAN CORPUSCULAR VOLUME 89.7 fl (81.0-99.0); MONOCYTES # (AUTO) 0.3 K/uL (0.4-2.0); MONOCYTES % (AUTO) 8.5 (0-10); NEUTROPHILS # (AUTO) 1.8 K/ul (2.0-6.9); NEUTROPHILS % (AUTO) 47.4 % (42.2-75.2); PLATELET COUNT 185 10^3/uL (140-440); RDW COEFFICIENT OF VARIATION 12.2 % (11.6-14.8); RED BLOOD COUNT 3.21 10^6/ul (4.20-5.40); WHITE BLOOD COUNT 3.86 K/ul (4.6-10.2)
[2022-03-30 05:21] LABS: BLOOD UREA NITROGEN 3.2 mg/dL (7-17); CALCIUM 9.01 mg/dL (8.4-10.2); CARBON DIOXIDE 26.8 mmol/L (22-30.0); CHLORIDE 106.6 mmol/L (98-107); GLUCOSE 101.7 mg/dL (74-106); MAGNESIUM 1.44 mg/dL (1.6-2.3); SODIUM 136.8 mmol/L (134.5-145)
[2022-03-30] MEDS: PROTONIX PO SCH (05:37)
[2022-03-30] MEDS ORDERED: MAGNESIUM SULFATE 1 GM/2 ML VIAL IVP ONE (07:32)
[2022-03-30] MEDS: DITROPAN PO SCH (08:27)
[2022-03-30] MEDS: NAMENDA PO SCH (08:28)
[2022-03-30] MEDS: K-DUR PO SCH (08:28)
[2022-03-30] MEDS: NEURONTIN PO SCH (08:28)
[2022-03-30 08:29] VITALS: TEMP 98.6
[2022-03-30] MEDS: LACTATED RINGERS 1,000 ML IV SCH ×2 (08:33→08:34)
[2022-03-30] MEDS ORDERED: MAGNESIUM SULFATE 1 GM/100 ML D5W 1 GM/100 ML BAG IV STA (09:23)
[2022-03-30 13:54] VITALS: BP 115/62
[2022-03-31] MEDS ORDERED: FOSAMAX PO SCH (06:30)
--- NOTE | 2022-04-07 18:43 | PCM.DC ---
Final Diagnosis: 1. Dehydration - resolved. 2. Low potassium and magnesium - resolved. 3. Altered mental status - resolved. Date of admit - 03/24/2022 Date of discharge - 03/30/2022 Physical Exam Appearance: Well-appearing Ill-appearing: None Pain Distress: None Eyes: JONATAN ENT: Oropharynx normal Neck: Supple Respiratory: Airway patent and Breath sounds clear Cardiovascular: RRR and Pulses normal GI/: Soft and Nontender Musculoskeletal: Limited ROM and Limited strength Skin: Warm and Dry Neurological: Sensation intact, Motor intact and Alert (at baseline) Psychiatric: Affect appropriate and Mood appropriate (1) Vomiting: Status: Acute Code(s): R11.10 - Vomiting, unspecified SNOMED Code(s): 643755490 (2) Acute hypokalemia: Status: Acute Code(s): E87.6 - Hypokalemia SNOMED Code(s): 90696265 (3) Acute dehydration: Status: Acute Code(s): E86.0 - Dehydration SNOMED Code(s): 39465227 (4) Low magnesium level: Status: Acute Code(s): R79.0 - Abnormal level of blood mineral SNOMED Code(s): 717176671 (5) Acute delirium: Status: Acute Code(s): R41.0 - Disorientation, unspecified SNOMED Code(s): 8679561 Reason for Hospitalization: Acute dehydration and secondary electrolyte abnormalities and confusion. Prognosis/Condition at Discharge: Stable Medications at Discharge: See RN notes Lab/Diagnostics: Laboratory Tests 03/24/22 03/24/22 03/24/22 13:30 13:30 13:30 WBC 5.19 RBC 3.64 L Hgb 11.4 L Hct 32.2 L MCV 88.5 MCH 31.3 H MCHC 35.4 RDW Coeff of Alfred 12.0 Plt Count 259 Immature Gran % (Auto) 0.4 Neut % (Auto) 62.4 Lymph % (Auto) 25.4 [place] % (Auto) 7.7 Eos % (Auto) 3.5 Baso % (Auto) 0.6 Neut # (Auto) 3.2 Lymph # (Auto) 1.3 [place] # (Auto) 0.4 Eos # (Auto) 0.2 Baso # (Auto) 0.0 Immature Gran # (Auto) 0.0 PT 11.3 H INR 1.09 Sodium 136.3 Potassium 2.78 L* Chloride 104.1 Carbon Dioxide 21.5 L Anion Gap 13.48 BUN 23.3 H Creatinine 1.49 H Estimated GFR (MDRD) 34.00 BUN/Creatinine Ratio 15.63 Glucose 112.1 H Lactic Acid Calcium 9.64 Magnesium Total Bilirubin 0.97 AST 22.3 ALT 14.0 Alkaline Phosphatase 94.0 Troponin I 0.037 Total Protein 7.47 Albumin 4.37 Globulin 3.10 Albumin/Globulin Ratio 1.40 TSH Free T4 Urine Color Urine Clarity Urine pH Ur Specific [place] Urine Protein Urine Glucose (UA) Urine Ketones Urine Blood Urine Nitrite Urine Bilirubin Urine Urobilinogen Ur Leukocyte Esterase Ur Squamous Epith Cells Hyaline Casts Urine Opiates Screen Ur Oxycodone Screen Urine Methadone Screen Ur Propoxyphene Screen Ur Barbiturates Screen U Tricyclic Antidepress Ur Phencyclidine Scrn Ur Amphetamine Screen U Methamphetamines Scrn U Benzodiazepines Scrn Urine Cocaine Screen U Cannabinoids Screen Plasma/Serum Alcohol < 10.0 SARS CoV-2 RNA Rapid MARLENE 03/24/22 03/24/22 03/24/22 13:30 13:55 14:28 WBC RBC Hgb Hct MCV MCH MCHC RDW Coeff of Alfred Plt Count Immature Gran % (Auto) Neut % (Auto) Lymph % (Auto) [place] % (Auto) Eos % (Auto) Baso % (Auto) Neut # (Auto) Lymph # (Auto) [place] # (Auto) Eos # (Auto) Baso # (Auto) Immature Gran # (Auto) PT INR Sodium Potassium Chloride Carbon Dioxide Anion Gap BUN Creatinine Estimated GFR (MDRD) BUN/Creatinine Ratio Glucose Lactic Acid 0.91 Calcium Magnesium Total Bilirubin AST ALT Alkaline Phosphatase Troponin I Total Protein Albumin Globulin Albumin/Globulin Ratio TSH Free T4 Urine Color Yellow Urine Clarity Clear Urine pH 5.5 Ur Specific [place] >=1.030 Urine Protein 1+ H Urine Glucose (UA) Negative Urine Ketones Negative Urine Blood Negative Urine Nitrite Negative Urine Bilirubin 2+ H Urine Urobilinogen 1.0 H Ur Leukocyte Esterase Negative Ur Squamous Epith Cells 10-20 Hyaline Casts 30-50 Urine Opiates Screen Ur Oxycodone Screen Urine Methadone Screen Ur Propoxyphene Screen Ur Barbiturates Screen U Tricyclic Antidepress Ur Phencyclidine Scrn Ur Amphetamine Screen U Methamphetamines Scrn U Benzodiazepines Scrn Urine Cocaine Screen U Cannabinoids Screen Plasma/Serum Alcohol SARS CoV-2 RNA Rapid MARLENE Negative 03/24/22 03/25/22 03/25/22 14:28 04:55 04:55 WBC 5.23 RBC 3.56 L Hgb 11.1 L Hct 31.7 L MCV 89.0 MCH 31.2 H MCHC 35.0 RDW Coeff of Alfred 12.0 Plt Count 239 Immature Gran % (Auto) 0.2 Neut % (Auto) 58.9 Lymph % (Auto) 29.4 [place] % (Auto) 7.5 Eos % (Auto) 3.4 Baso % (Auto) 0.6 Neut # (Auto) 3.1 Lymph # (Auto) 1.5 [place] # (Auto) 0.4 Eos # (Auto) 0.2 Baso # (Auto) 0.0 Immature Gran # (Auto) 0.0 PT INR Sodium 139.9 Potassium 3.30 L Chloride 109.9 H Carbon Dioxide 21.6 L Anion Gap 11.70 BUN 20.2 H Creatinine 1.30 Estimated GFR (MDRD) 40.00 BUN/Creatinine Ratio 15.53 Glucose 94.9 Lactic Acid Calcium 8.96 Magnesium 1.39 L Total Bilirubin 0.83 AST 23.9 ALT 12.6 Alkaline Phosphatase 83.9 Troponin I Total Protein 6.72 Albumin 3.87 Globulin 2.85 Albumin/Globulin Ratio 1.35 TSH Free T4 Urine Color Urine Clarity Urine pH Ur Specific [place] Urine Protein Urine Glucose (UA) Urine Ketones Urine Blood Urine Nitrite Urine Bilirubin Urine Urobilinogen Ur Leukocyte Esterase Ur Squamous Epith Cells Hyaline Casts Urine Opiates Screen Negative Ur Oxycodone Screen Negative Urine Methadone Screen Negative Ur Propoxyphene Screen Negative Ur Barbiturates Screen Negative U Tricyclic Antidepress Negative Ur Phencyclidine Scrn Negative Ur Amphetamine Screen Negative U Methamphetamines Scrn Negative U Benzodiazepines Scrn Negative Urine Cocaine Screen Negative U Cannabinoids Screen Negative Plasma/Serum Alcohol SARS CoV-2 RNA Rapid MARLENE 03/26/22 03/26/22 03/26/22 04:57 04:57 04:57 WBC 5.44 RBC 3.57 L Hgb 11.1 L Hct 32.1 L MCV 89.9 MCH 31.1 H MCHC 34.6 RDW Coeff of Alfred 12.2 Plt Count 240 Immature Gran % (Auto) 0.6 Neut % (Auto) 53.7 Lymph % (Auto) 35.5 [place] % (Auto) 5.9 Eos % (Auto) 3.7 Baso % (Auto) 0.6 Neut # (Auto) 2.9 Lymph # (Auto) 1.9 [place] # (Auto) 0.3 L Eos # (Auto) 0.2 Baso # (Auto) 0.0 Immature Gran # (Auto) 0.0 PT INR Sodium 139.7 Potassium 3.62 Chloride 111.1 H Carbon Dioxide 21.4 L Anion Gap 10.82 BUN 12.8 Creatinine 1.13 Estimated GFR (MDRD) 47.00 BUN/Creatinine Ratio 11.32 Glucose 84.3 Lactic Acid Calcium 8.73 Magnesium 1.57 L Total Bilirubin 0.72 AST 25.1 ALT 12.1 Alkaline Phosphatase 85.5 Troponin I Total Protein 6.46 Albumin 3.75 Globulin 2.71 Albumin/Globulin Ratio 1.38 TSH Free T4 Urine Color Urine Clarity Urine pH Ur Specific [place] Urine Protein Urine Glucose (UA) Urine Ketones Urine Blood Urine Nitrite Urine Bilirubin Urine Urobilinogen Ur Leukocyte Esterase Ur Squamous Epith Cells Hyaline Casts Urine Opiates Screen Ur Oxycodone Screen Urine Methadone Screen Ur Propoxyphene Screen Ur Barbiturates Screen U Tricyclic Antidepress Ur Phencyclidine Scrn Ur Amphetamine Screen U Methamphetamines Scrn U Benzodiazepines Scrn Urine Cocaine Screen U Cannabinoids Screen Plasma/Serum Alcohol SARS CoV-2 RNA Rapid MARLENE 03/27/22 03/27/22 03/27/22 04:50 04:50 04:50 WBC 4.90 RBC 3.57 L Hgb 11.3 L Hct 31.9 L MCV 89.4 MCH 31.7 H MCHC 35.4 RDW Coeff of Alfred 12.3 Plt Count 235 Immature Gran % (Auto) 0.4 Neut % (Auto) 60.0 Lymph % (Auto) 28.2 [place] % (Auto) 7.1 Eos % (Auto) 3.9 Baso % (Auto) 0.4 Neut # (Auto) 2.9 Lymph # (Auto) 1.4 [place] # (Auto) 0.4 Eos # (Auto) 0.2 Baso # (Auto) 0.0 Immature Gran # (Auto) 0.0 PT INR Sodium 139.1 Potassium 3.65 Chloride 109.6 H Carbon Dioxide 24.6 Anion Gap 8.55 BUN 7.4 Creatinine 0.92 Estimated GFR (MDRD) 59.00 BUN/Creatinine Ratio 8.04 Glucose 95.7 Lactic Acid Calcium 8.81 Magnesium 1.31 L Total Bilirubin 0.70 AST 24.7 ALT 11.6 Alkaline Phosphatase 78.6 Troponin I Total Protein 6.61 Albumin 3.79 Globulin 2.82 Albumin/Globulin Ratio 1.34 TSH Free T4 Urine Color Urine Clarity Urine pH Ur Specific [place] Urine Protein Urine Glucose (UA) Urine Ketones Urine Blood Urine Nitrite Urine Bilirubin Urine Urobilinogen Ur Leukocyte Esterase Ur Squamous Epith Cells Hyaline Casts Urine Opiates Screen Ur Oxycodone Screen Urine Methadone Screen Ur Propoxyphene Screen Ur Barbiturates Screen U Tricyclic Antidepress Ur Phencyclidine Scrn Ur Amphetamine Screen U Methamphetamines Scrn U Benzodiazepines Scrn Urine Cocaine Screen U Cannabinoids Screen Plasma/Serum Alcohol SARS CoV-2 RNA Rapid MARLENE 03/28/22 03/28/22 03/28/22 04:42 04:42 04:42 WBC 4.80 RBC 3.31 L Hgb 10.4 L Hct 30.0 L MCV 90.6 MCH 31.4 H MCHC 34.7 RDW Coeff of Alfred 12.4 Plt Count 208 Immature Gran % (Auto) 0.4 Neut % (Auto) 51.9 Lymph % (Auto) 35.6 [place] % (Auto) 7.1 Eos % (Auto) 4.6 Baso % (Auto) 0.4 Neut # (Auto) 2.5 Lymph # (Auto) 1.7 [place] # (Auto) 0.3 L Eos # (Auto) 0.2 Baso # (Auto) 0.0 Immature Gran # (Auto) 0.0 PT INR Sodium 140.3 Potassium 4.06 Chloride 112.3 H Carbon Dioxide 22.6 Anion Gap 9.46 BUN 6.1 L Creatinine 0.98 Estimated GFR (MDRD) 55.00 BUN/Creatinine Ratio 6.22 Glucose 96.2 Lactic Acid Calcium 8.76 Magnesium 1.30 L Total Bilirubin 0.69 AST 22.5 ALT 9.8 Alkaline Phosphatase 71.2 Troponin I Total Protein 6.12 L Albumin 3.37 L Globulin 2.75 Albumin/Globulin Ratio 1.22 TSH Free T4 Urine Color Urine Clarity Urine pH Ur Specific [place] Urine Protein Urine Glucose (UA) Urine Ketones Urine Blood Urine Nitrite Urine Bilirubin Urine Urobilinogen Ur Leukocyte Esterase Ur Squamous Epith Cells Hyaline Casts Urine Opiates Screen Ur Oxycodone Screen Urine Methadone Screen Ur Propoxyphene Screen Ur Barbiturates Screen U Tricyclic Antidepress Ur Phencyclidine Scrn Ur Amphetamine Screen U Methamphetamines Scrn U Benzodiazepines Scrn Urine Cocaine Screen U Cannabinoids Screen Plasma/Serum Alcohol SARS CoV-2 RNA Rapid MARLENE 03/28/22 03/29/22 03/29/22 15:50 04:40 04:40 WBC 4.21 L RBC 3.36 L Hgb 10.6 L Hct 30.4 L MCV 90.5 MCH 31.5 H MCHC 34.9 RDW Coeff of Alfred 12.5 Plt Count 214 Immature Gran % (Auto) 0.2 Neut % (Auto) 48.0 Lymph % (Auto) 39.7 [place] % (Auto) 7.4 Eos % (Auto) 4.0 Baso % (Auto) 0.7 Neut # (Auto) 2.0 Lymph # (Auto) 1.7 [place] # (Auto) 0.3 L Eos # (Auto) 0.2 Baso # (Auto) 0.0 Immature Gran # (Auto) 0.0 PT INR Sodium 138.6 Potassium 4.17 Chloride 109.3 H Carbon Dioxide 25.8 Anion Gap 7.67 BUN 4.9 L Creatinine 0.99 Estimated GFR (MDRD) 54.00 BUN/Creatinine Ratio 4.94 Glucose 97.0 Lactic Acid Calcium 8.75 Magnesium 2.06 1.80 Total Bilirubin AST ALT Alkaline Phosphatase Troponin I Total Protein Albumin Globulin Albumin/Globulin Ratio TSH 2.130 Free T4 Urine Color Urine Clarity Urine pH Ur Specific [place] Urine Protein Urine Glucose (UA) Urine Ketones Urine Blood Urine Nitrite Urine Bilirubin Urine Urobilinogen Ur Leukocyte Esterase Ur Squamous Epith Cells Hyaline Casts Urine Opiates Screen Ur Oxycodone Screen Urine Methadone Screen Ur Propoxyphene Screen Ur Barbiturates Screen U Tricyclic Antidepress Ur Phencyclidine Scrn Ur Amphetamine Screen U Methamphetamines Scrn U Benzodiazepines Scrn Urine Cocaine Screen U Cannabinoids Screen Plasma/Serum Alcohol SARS CoV-2 RNA Rapid MARLENE 03/29/22 03/30/22 03/30/22 04:40 05:00 05:00 WBC 3.86 L RBC 3.21 L Hgb 10.0 L Hct 28.8 L MCV 89.7 MCH 31.2 H MCHC 34.7 RDW Coeff of Alfred 12.2 Plt Count 185 Immature Gran % (Auto) 0.3 Neut % (Auto) 47.4 Lymph % (Auto) 38.6 [place] % (Auto) 8.5 Eos % (Auto) 4.7 Baso % (Auto) 0.5 Neut # (Auto) 1.8 L Lymph # (Auto) 1.5 [place] # (Auto) 0.3 L Eos # (Auto) 0.2 Baso # (Auto) 0.0 Immature Gran # (Auto) 0.0 PT INR Sodium 136.8 Potassium 4.00 Chloride 106.6 Carbon Dioxide 26.8 Anion Gap 7.40 BUN 3.2 L Creatinine 1.00 Estimated GFR (MDRD) 54.00 BUN/Creatinine Ratio 3.20 Glucose 101.7 Lactic Acid Calcium 9.01 Magnesium 1.44 L Total Bilirubin AST ALT Alkaline Phosphatase Troponin I Total Protein Albumin Globulin Albumin/Globulin Ratio TSH Free T4 1.12 Urine Color Urine Clarity Urine pH Ur Specific [place] Urine Protein Urine Glucose (UA) Urine Ketones Urine Blood Urine Nitrite Urine Bilirubin Urine Urobilinogen Ur Leukocyte Esterase Ur Squamous Epith Cells Hyaline Casts Urine Opiates Screen Ur Oxycodone Screen Urine Methadone Screen Ur Propoxyphene Screen Ur Barbiturates Screen U Tricyclic Antidepress Ur Phencyclidine Scrn Ur Amphetamine Screen U Methamphetamines Scrn U Benzodiazepines Scrn Urine Cocaine Screen U Cannabinoids Screen Plasma/Serum Alcohol SARS CoV-[address] abd/pel without contrast - HISTORY: Abdominal pain. Nausea vomiting COMPARISON: 04/20/2015 FINDINGS: The liver shows no acute abnormality. The gallbladder has been removed. The adrenal glands and kidneys show no acute abnormality. There is no hydronephrosis. Bilateral benign-appearing renal cysts. The spleen and pancreas show no acute abnormality. There is no bowel obstruction. No evidence of appendicitis. Unremarkable urinary bladder. No free air. No free fluid. IMPRESSION: 1. No urinary or bowel obstruction 2. Benign-appearing renal cysts 3. Status post cholecystectomy. 4. No acute inflammatory process identified within the limitation of a noncontrast enhanced examination. CT Head HISTORY: Altered mental status. PROCEDURE: Contiguous axial CT images of the head without contrast with coronal and sagittal reformats. FINDINGS: There is diffuse cerebral atrophy. The ventricles and basal cisterns are normal in size and configuration. No evidence of mass or midline shift. No intracranial hemorrhage or evidence of large vessel infarct. No extra-axial fluid collection. There are chronic small vessel ischemic changes in the white matter. There is mucosal thickening in the paranasal sinuses. The mastoid air cells are normal in appearance. Redemonstrated is 1.4 x 0.6 cm nodule in the right parietal scalp compared with CT of 02/18/2014. Impression: No intracranial hemorrhage or evidence of large vessel infarct. Chronic small vessel ischemic changes. Diffuse cerebral atrophy. Paranasal sinusitis. Chronic nodule in the right parietal scalp. Follow-ups: [place] PCP Discharge Disposition: House Nurse Care Facility Hospital Course: From assisted, became dehydrated from poor oral intake, potassium and magnesium became low, confused more than baseline. All resolved with treatment. Slow recovery due to generalized debility and weakness. Plan: Return to [facility]. This discharge done with a [id number] exam and entire discharge process entailing 40 minutes.
== END 2022-03-30 15:45 | DRG 641 ==
LOC: ED 12:38 → MEDSURG A 12:38 → OBSVTOIN 15:45 → MEDSURG A 16:37
PROVIDERS: ADMIT Emergency Medicine Emergency Medical Services; ATTEND Internal Medicine Geriatric Medicine
DX: R11.10 Vomiting, unspecified; E87.6 Hypokalemia; E86.0 Dehydration; Z03.89 Encounter for observation for other suspected diseases and conditions ruled out; Z20.822 Contact with and (suspected) exposure to COVID-19; Z51.81 Encounter for therapeutic drug level monitoring; Z79.899 Other long term (current) drug therapy; R53.83 Other fatigue; R19.7 Diarrhea, unspecified; E61.2 Magnesium deficiency; R41.0 Disorientation, unspecified

== ENCOUNTER 2022-07-05 12:42 | Inpatient (IN) ==
[2022-07-05 12:47] VITALS: BMI 17.7
[2022-07-05] MEDS ORDERED: PEPCID PO STA (12:49)
[2022-07-05] MEDS ORDERED: ZOFRAN ODT PO STA (12:49)
[2022-07-05 13:13] LABS: BASOPHILS % (AUTO) 0.3 % (0.0-3.0); EOSINOPHILS # (AUTO) 0.1 K/ul (0.0-0.7); HEMATOCRIT 38.9 % (37.0-47.0); HEMOGLOBIN 13.4 g/dl (12.0-16.0); IMMATURE GRANULOCYTE # (AUTO) 0.1 (0.0-1.0); IMMATURE GRANULOCYTE % (AUTO) 1.1 % (0.0-5.0); LYMPHOCYTES # (AUTO) 1.9 K/uL (0.60-3.4); LYMPHOCYTES % (AUTO) 27.6 (10.0-50.0); MEAN CORPUSCULAR HEMOGLOBIN 31.8 pg (27.0-31.0); MEAN CORPUSCULAR HGB CONC 34.4 (31.8-35.4); MEAN CORPUSCULAR VOLUME 92.4 fl (81.0-99.0); MONOCYTES # (AUTO) 0.3 K/uL (0.4-2.0); MONOCYTES % (AUTO) 4.9 (0-10); NEUTROPHILS # (AUTO) 4.5 K/ul (2.0-6.9); NEUTROPHILS % (AUTO) 65.1 % (42.2-75.2); PLATELET COUNT 254 10^3/uL (140-440); RDW COEFFICIENT OF VARIATION 15.8 % (11.6-14.8); RED BLOOD COUNT 4.21 10^6/ul (4.20-5.40); WHITE BLOOD COUNT 6.96 K/ul (4.6-10.2)
[2022-07-05 13:19] LABS: ALANINE AMINOTRANSFERASE 13.1 U/L (0-35); ALBUMIN 4.32 g/dL (3.5-5.0); ALKALINE PHOSPHATASE 111.8 U/L (53-141); ASPARTATE AMINO TRANSFERASE 30.4 U/L (14-36); BILIRUBIN,TOTAL 0.63 mg/dL (0.2-1.3); BLOOD UREA NITROGEN 23.4 mg/dL (7-17); CALCIUM 9.98 mg/dL (8.4-10.2); CARBON DIOXIDE 16.8 mmol/L (22-30.0); CHLORIDE 100.5 mmol/L (98-107); CREATININE 1.36 mg/dL (0.60-1.30); GLUCOSE 108.4 mg/dL (74-106); LIPASE 74.9 U/L (23-300); POTASSIUM 3.79 mmol/L (3.5-5.1); SODIUM 130.9 mmol/L (134.5-145); TOTAL PROTEIN 7.12 g/dL (6.3-8.2)
--- NOTE | 2022-07-05 13:22 | ED.PDOC ---
General ED Provider: Dr. DAVID MESA Chief Complaint: Nausea/Vomiting Stated Complaint: armin been nauseated for 2 weeks--her nephew says she has not been eating or drinking Time Seen by Provider: 07/05/22 12:43 Mode of Arrival: Wheelchair Information Source: Patient Exam Limitations: No limitations Primary Care Provider: TRINH OSWALD MD Nursing and Triage Documentation Reviewed and Agree: Yes Does patient meet sepsis criteria?: No System Inflammatory Response Syndrome: Not Applicable Sepsis Protocol: For patient's 13 years and over: Temp is 96.8 and below OR 101 and greater Pulse >90 BPM Resp >20/minute Acutely Altered Mental Status Are patient's symptoms suggestive of a new infection, such as: -Pneumonia -Skin, Soft Tissue -Endocarditis -UTI -Bone, Joint Infection -Implantable Device -Acute Abdominal Infection -Wound Infection -Meningitis -Blood Stream Catheter Infection -Unknown GI Complaint Exam Vomiting/Diarrhea Complaint/Exam Onset/Duration: 2 weeks Symptoms Are: Still present Initial Severity: Mild Current Severity: Mild Aggravating: Reports None Alleviating: Reports None Associated Signs and Symptoms: Reports Dizziness Recent Positive Test: No Use of Oral Contraceptives: No Use of Depoprovera: No Non-GI Risk Factors: Reports None Abdominal Findings: Present None Kussmaul Respirations Present: No Differential Diagnoses: Gastritis Review of Systems Review Of Systems Constitutional: Reports No symptoms Eyes: Reports No symptoms Ears, Nose, Mouth, Throat: Reports No symptoms Respiratory: Reports No symptoms Cardiac: Reports No symptoms GI: Reports Nausea : Reports No symptoms Musculoskeletal: Reports No symptoms Skin: Reports No symptoms Neurological: Reports No symptoms Endocrine: Reports No symptoms Hematologic/Lymphatic: Reports No symptoms All Other Systems: Reviewed and Negative [facility] Medical History Dementia GERD (gastroesophageal reflux disease) HTN (hypertension) Osteoporosis Overactive bladder Social History Smoking and tobacco status: Current every day smoker Tobacco type: cigarettes Passive smoking exposure: No Second hand smoke exposure: No Smoking risk assessment performed: No Alcohol intake: never Counseling given: No Counseling provided: none Substance use type: does not use Counseling given: No Counseling provided: none Marital status: D Lives independently: Yes service: No intermediate: No Current occupational status: retired Current occupational exposures/hazards: No Pets and animals: No History of recent travel: No Current gender identity: female Seatbelt use: always Helmet use: No Drives intoxicated or rides with intoxicated 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 Water heater temperature set < 120 degrees: Yes Working smoke detector in home: Yes Fire extinguisher in home: Yes Carbon monoxide detector in home: Yes Firearms in home: No Surgical History H/O left knee surgery H/O neck surgery H/O total hysterectomy History of bladder surgery History of cholecystectomy Hx of appendectomy Female Reproductive History Menstrual Hx Hysterectomy: Yes Hx Tubal Ligation: No Physical Exam Physical Exam Appearance: Reports Well-appearing and Thin Ill-appearing: None Pain Distress: None Eyes: Reports JONATAN, EOMI and Conjunctiva clear ENT: Reports Ears normal, Nose normal, Oropharynx normal and Dry mucosa Neck: Supple Respiratory: Reports Airway patent, Breath sounds clear and Breath sounds equal Cardiovascular: Reports RRR, Pulses normal, No rub and No murmur GI/: Reports Soft, Nontender and No masses Musculoskeletal: Reports Normal strength, ROM intact, No edema and No calf tenderness Skin: Reports Warm, Dry and Normal color Neurological: Reports Sensation intact, Motor intact, Reflexes intact, Cranial nerves intact, Alert and Oriented Psychiatric: Reports Affect appropriate and Mood appropriate Interpretation EKG Interpretation Time of EKG #1: 13:21 Rate: Normal Rhythm: Sinus Ectopy: None [place]: NL ST Segment: Normal Interpretation: nsr Critical Care Note Critical Care Note Total Critical Care Time (mins): 0 Course Course Hematology/Chemistry: 07/05/22 13:05 07/05/22 13:05 Orders, Labs, Meds: Lab Review 07/05/22 07/05/22 07/05/22 13:05 13:05 13:55 WBC 6.96 RBC 4.21 Hgb 13.4 Hct 38.9 MCV 92.4 MCH 31.8 H MCHC 34.4 RDW Coeff of Alfred 15.8 H Plt Count 254 Immature Gran % (Auto) 1.1 Neut % (Auto) 65.1 Lymph % (Auto) 27.6 [place] % (Auto) 4.9 Eos % (Auto) 1.0 Baso % (Auto) 0.3 Neut # (Auto) 4.5 Lymph # (Auto) 1.9 [place] # (Auto) 0.3 L Eos # (Auto) 0.1 Baso # (Auto) 0.0 Immature Gran # (Auto) 0.1 Sodium 130.9 L Potassium 3.79 Chloride 100.5 Carbon Dioxide 16.8 L Anion Gap 17.39 BUN 23.4 H Creatinine 1.36 H Estimated GFR (MDRD) 38.00 BUN/Creatinine Ratio 17.20 Glucose 108.4 H Calcium 9.98 Total Bilirubin 0.63 AST 30.4 ALT 13.1 Alkaline Phosphatase 111.8 Troponin I 0.149 H Total Protein 7.12 Albumin 4.32 Globulin 2.80 Albumin/Globulin Ratio 1.54 Lipase 74.9 Urine Color Urine Clarity Urine pH Ur Specific [place] Urine Protein Urine Glucose (UA) Urine Ketones Urine Blood Urine Nitrite Urine Bilirubin Urine Urobilinogen Ur Leukocyte Esterase Urine Microscopic RBC Urine Microscopic WBC Ur Squamous Epith Cells Ur Renal Epithelial Cell Amorphous Sediment Urine Bacteria Hyaline Casts Influ A Molecular Assay Influ B Molecular Assay SARS CoV-2 RNA Rapid MARLENE Negative 07/05/22 07/05/22 13:55 13:55 WBC RBC Hgb Hct MCV MCH MCHC RDW Coeff of Alfred Plt Count Immature Gran % (Auto) Neut % (Auto) Lymph % (Auto) [place] % (Auto) Eos % (Auto) Baso % (Auto) Neut # (Auto) Lymph # (Auto) [place] # (Auto) Eos # (Auto) Baso # (Auto) Immature Gran # (Auto) Sodium Potassium Chloride Carbon Dioxide Anion Gap BUN Creatinine Estimated GFR (MDRD) BUN/Creatinine Ratio Glucose Calcium Total Bilirubin AST ALT Alkaline Phosphatase Troponin I Total Protein Albumin Globulin Albumin/Globulin Ratio Lipase Urine Color Dark Urine Clarity Clear Urine pH 5.5 Ur Specific [place] 1.025 Urine Protein 1+ H Urine Glucose (UA) Negative Urine Ketones 1+ H Urine Blood Negative Urine Nitrite Negative Urine Bilirubin 3+ H Urine Urobilinogen 0.2 Ur Leukocyte Esterase Negative Urine Microscopic RBC 2-5 Urine Microscopic WBC 2-5 Ur Squamous Epith Cells 2-5 Ur Renal Epithelial Cell 0-2 Amorphous Sediment Trace Urine Bacteria Trace Hyaline Casts 2-5 Influ A Molecular Assay Negative by naat Influ B Molecular Assay Negative by naat SARS CoV-2 RNA Rapid MARLENE Orders Category Date Time Status EKG-(ED ONLY) Stat CARDIO 07/05/22 12:51 Ordered CBC W/ AUTO DIFF Stat LAB 07/05/22 13:05 Completed CMP [COMPREHENSIVE METABOLIC PANEL] Stat LAB 07/05/22 13:05 Completed COVID [SARS COV-2 RNA RAPID MARLENE] Stat LAB 07/05/22 13:55 Completed FLU A & B MOLECULAR [FLU A/B MOLECULAR] Stat LAB 07/05/22 13:55 Completed LIPASE Stat LAB 07/05/22 13:05 Completed TROPONIN I Stat LAB 07/05/22 13:05 Completed URINALYSIS C & S IF INDICATED Stat LAB 07/05/22 13:55 Completed Famotidine [Pepcid] MEDS 07/05/22 12:49 Discontinued 20 mg PO ONCE STA Ondansetron [Zofran Odt] MEDS 07/05/22 12:49 Discontinued 4 mg PO ONCE STA CT ABDOMEN/PELVIS WO CONTRAST Stat RADS 07/05/22 12:[address] HEAD W/O CONTRAST Stat RADS 07/05/22 12:49 Completed Medications Discontinued Medications Generic Name Dose Route Start Last Admin Trade Name Freq PRN Reason Stop Dose Admin Famotidine 20 mg 07/05/22 12:49 07/05/22 12:55 Famotidine 20 Mg Tablet PO 07/05/22 12:50 20 mg ONCE STA Administration Ondansetron HCl 4 mg 07/05/22 12:49 07/05/22 12:56 Ondansetron Hcl 4 Mg Tab.Rapdis PO 07/05/22 12:50 4 mg ONCE STA Administration Vital Signs: Temp Pulse Resp BP Pulse Ox 07/05/22 12:44 98.4 F 83 20 155/86 H 98 Discharge Plan Discharge Patient Disposition: ADMITTED INPATIENT Discharge Problem: Acute dehydration, Elevated troponin I level Prescriptions: No Action potassium chloride 20 mEq tablet extended release 20 meq PO DIRECTED Qty: 45 0RF Rx Instructions: BID with meals x 2 weeks then daily gabapentin 300 mg capsule 300 mg PO DAILY aspirin [Adult Low Dose Aspirin] 81 mg tablet,delayed release (DR/EC) 81 mg PO QDAY vitamin [id number] acid 2,500-400 mcg tablet,disintegrating PO .daily alendronate 70 mg tablet 70 mg PO QWEEK memantine 10 mg tablet 10 mg PO BID Hold Instructions: Accidental Entry donepezil [Aricept] 10 mg tablet 10 mg PO QDAY Qty: 90 1RF ondansetron 4 mg tablet,disintegrating 4 mg PO Q8H Qty: 30 0RF Did you review [place] [employer]?: Not Applicable ED Provider: DAVID MCFADDEN Condition: Fair Physician Progress Note: []
[2022-07-05 13:30] LABS: TROPONIN I 0.149 ng/ml (0.0000-0.120)
--- NOTE | 2022-07-05 13:42 | CT ---
EXAM: CT BRAIN HISTORY: Dizziness TECHNIQUE: CT brain without intravenous contrast. 5-mm axial sections with Reformations. COMPARISON: 03/26/2022 FINDINGS: The brain was unremarkable for age without evidence of hemorrhage or large vessel distribution rece nt ischemic infarction. There is no suggestion of acute hydrocephalus or subdural fluid collection. No mass or mass effect. Cranium has no acute finding. Mastoid processes are aerated. The visualiz ed paranasal sinuses are clear. IMPRESSION: No acute intracranial process. All CT scans are performed using dose optimization techniques as appropriate to the performed exam an d include at least one of the following: Automated exposure control, adjustment of the mA and/or kV according t o size, and the use of iterative reconstruction technique.
--- NOTE | 2022-07-05 13:50 | CT ---
EXAM: CT ABDOMEN/PELVIS WITHOUT CONTRAST HISTORY: Nausea COMPARISON: None. TECHNIQUE: Multi-slice transaxial helical images are acquired through the abdomen and pelvis with co elizabeth and sagittal reconstructed images. All CT scans are performed using dose optimization techni ques as appropriate to the performed exam and includes at least one of the following: Automated expo sure control, adjustment of the mA and/or kV according to size, and the use of iterative reconstructi on technique. CONTRAST: CT abdomen/pelvis from 03/24/2022 FINDINGS: Lung bases: The lung bases are clear. Liver: There is focal low attenuation and hepatic segment 3 adjacent to the falciform ligament. Gallbladder/bilary tree: The gallbladder is surgically absent. The common bile duct is mildly dilat ed up to 0.8 cm. No intrahepatic biliary dilatation. Pancreas: There is a solitary calcification in the uncinate process of the pancreas. The pancreas i s mildly atrophic. Adrenal glands: Normal. Spleen: Calcified granulomas are noted in the otherwise normal spleen. Kidneys: There is a small probable hemorrhagic or proteinaceous cyst at the inferior pole of the rig ht kidney measuring 0.3 cm. Simple acquired bilateral renal cysts are noted. No nephrolithiasis or hydronephrosis. Retroperitoneum: The aorta is atherosclerotic. There is ectasia of the infrarenal abdominal aorta u p to 25.6 mm. No retroperitoneal lymphadenopathy or hematomas. Peritoneum: No free air or ascites. Bowel: There is fluid within the rectum suggesting diarrhea. There is submucosal fat deposition in the cecum and ascending colon compatible with chronic inflammation. No intestinal distension. Pelvis: The uterus is surgically absent and there are no adnexal masses. There also bladder is petra sly normal. No free fluid. Addominal wall/bones: An old healed right lower rib fractures noted. No suspicious bone lesions or body wall hernias. IMPRESSION: Probable focal fat in hepatic segment three. Mild biliary dilatation post cholecystectomy. Findings compatible with diarrhea. Simple acquired bilateral renal cysts and small hemorrhagic or proteinaceous right renal cyst. Minimal chronic pancreatitis. Ectasia of the infrarenal abdominal aorta to 25.[address] scans are performed using dose optimization techniques as appropriate to the performed exam an d include at least one of the following: Automated exposure control, adjustment of the mA and/or kV according t o size, and the use of iterative reconstruction technique.
[2022-07-05 14:06] LABS: BILIRUBIN,URINE 3+ (NEGATIVE); CLARITY,URINE Clear (CLEAR); COLOR,URINE Dark (YELLOW); GLUCOSE, URINE (UA) Negative (NEGATIVE); KETONES,URINE 1+ (NEGATIVE); LEUKOCYTE ESTERASE ,URINE Negative (NEGATIVE); NITRITE,URINE Negative (NEGATIVE); PH,URINE 5.5 (5-9); PROTEIN,URINE 1+ (NEGATIVE); URINE, BLOOD Negative (NEGATIVE); UROBILINOGEN,URINE 0.2 (0.2)
[2022-07-05 14:09] LABS: AMORPHOUS SEDIMENT,UR TRACE (NOT PRESENT); BACTERIA,URINE TRACE (NOT PRESENT); RENAL EPITHELIAL CELLS,URINE 0-2 (NOT PRESENT)
[2022-07-05 14:24] LABS: MOLECULAR FLU A NEGATIVE BY NAAT (NEGATIVE); MOLECULAR FLU B NEGATIVE BY NAAT (NEGATIVE)
[2022-07-05] MEDS ORDERED: K-DUR PO SCH (15:00)
[2022-07-05] MEDS: SODIUM CHLORIDE 1,000 ML IV SCH (15:22)
[2022-07-05] MEDS: ZOFRAN ODT PO SCH ×2 (15:45→15:52)
--- NOTE | 2022-07-05 15:45 | PCM ---
Chief Complaint Chief Complaint: she is not eating or drinking---she has been this way for 2 weeks-- History of Present Illness History of Present Illness: hx comes from her nephew kavita dumas--he notes poor appetite for 2 weeks with nausea and upper abd pain--denies any chest pAIN.. Review of Systems Constitutional: Reports Weakness and Loss of appetite Eyes: Reports No symptoms Ears: Reports No symptoms Nose: Reports No symptoms Throat: Reports No symptoms Mouth: Reports No symptoms Respiratory: Reports No symptoms Cardiovascular: Reports No symptoms Gastrointestinal: Reports Abdominal pain and Nausea Genitourinary: Reports No symptoms Neurological: Reports No symptoms Musculoskeletal: Reports No symptoms Skin: Reports No symptoms Immunology: Reports No symptoms Hematology: Reports No symptoms Endocrine: Reports No symptoms Psychiatric: Reports No symptoms Habits: Denies Tobacco use, Substance use, Alcohol use or Other Allergies Allergies Allergy/AdvReac Type Severity Reaction Status Date / Time No Known Allergies Allergy Verified 07/05/22 15:39 [facility] Medical History Dementia GERD (gastroesophageal reflux disease) HTN (hypertension) Osteoporosis Overactive bladder Surgical History H/O left knee surgery H/O neck surgery H/O total hysterectomy History of bladder surgery History of cholecystectomy Hx of appendectomy Social History Smoking and tobacco status: Current every day smoker Tobacco type: cigarettes Passive smoking exposure: No Second hand smoke exposure: No Smoking risk assessment performed: No Alcohol intake: never Counseling given: No Counseling provided: none Substance use type: does not use Counseling given: No Counseling provided: none Marital status: D Lives independently: Yes service: No shelter: No Current occupational status: retired Current occupational exposures/hazards: No Pets and animals: No History of recent travel: No Current gender identity: female Seatbelt use: always Helmet use: No Drives intoxicated or rides with intoxicated 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 Water heater temperature set < 120 degrees: Yes Working smoke detector in home: Yes Fire extinguisher in home: Yes Carbon monoxide detector in home: Yes Firearms in home: No Medications Medications: Medications Generic Name Dose Route Start Last Admin Trade Name Freq PRN Reason Stop Dose Admin Aspirin 81 mg 07/06/22 09:00 Aspirin 81 Mg Tablet.Dr PO DAILY [facility] Enoxaparin Sodium 30 mg 07/06/22 09:00 Enoxaparin Sodium 30 Mg/0.3 Ml Syr SUBCUT DAILY [facility] Famotidine 40 mg 07/05/22 21:00 Famotidine Inj 20 Mg/2 Ml Vial IVP BID [facility] Gabapentin 300 mg 07/06/22 09:00 Gabapentin 300 Mg Capsule PO DAILY [facility] Sodium Chloride 1,000 mls @ 75 mls/hr 07/05/22 15:00 07/05/22 15:22 Sodium Chloride IV 75 mls/hr .[id number] [facility] Administration Memantine 10 mg 07/05/22 21:00 Memantine Hcl 10 Mg Tablet PO BID [facility] Ondansetron HCl 4 mg 07/05/22 15:00 Ondansetron Hcl 4 Mg Tab.Rapdis PO Q8H [facility] Potassium Chloride 20 meq 07/05/22 15:00 Potassium Chloride 20 Meq Tab PO DIRECTED [facility] Body Composition Height: 5 ft 6 in Weight: 110 lb Body Mass Index (BMI): 17.7 Vital Signs Temperature: 98.9 F Pulse Rate: 77 Respiratory Rate: 20 Blood Pressure: 145/78 O2 Sat by Pulse Oximetry: 97 Physical Examination Appearance: Reports Thin Ill-appearing: None Pain Distress: None Eyes: Reports JONATAN, EOMI and Conjunctiva clear ENT: Reports Ears normal, Nose normal and Dry mucosa Neck: Supple Respiratory: Reports Airway patent, Breath sounds clear and Breath sounds equal Cardiovascular: Reports RRR, Pulses normal, No rub and No murmur GI/: Reports Soft, Nontender, No masses, Bowel sounds normal and No Organomegaly Musculoskeletal: Reports Normal strength, ROM intact, No edema and No calf tenderness Skin: Reports Warm, Dry and Normal color Neurological: Reports Sensation intact, Motor intact, Reflexes intact, Cranial nerves intact and Disoriented Psychiatric: Reports Affect appropriate and Mood appropriate Lab/Tests/Diagnostic Imaging Lab/Tests/Diagnostic Imaging: Lab Review 07/05/22 07/05/22 07/05/22 13:05 13:05 13:55 WBC 6.96 RBC 4.21 Hgb 13.4 Hct 38.9 MCV 92.4 MCH 31.8 H MCHC 34.4 RDW Coeff of Alfred 15.8 H Plt Count 254 Immature Gran % (Auto) 1.1 Neut % (Auto) 65.1 Lymph % (Auto) 27.6 [place] % (Auto) 4.9 Eos % (Auto) 1.0 Baso % (Auto) 0.3 Neut # (Auto) 4.5 Lymph # (Auto) 1.9 [place] # (Auto) 0.3 L Eos # (Auto) 0.1 Baso # (Auto) 0.0 Immature Gran # (Auto) 0.1 Sodium 130.9 L Potassium 3.79 Chloride 100.5 Carbon Dioxide 16.8 L Anion Gap 17.39 BUN 23.4 H Creatinine 1.36 H Estimated GFR (MDRD) 38.00 BUN/Creatinine Ratio 17.20 Glucose 108.4 H Calcium 9.98 Total Bilirubin 0.63 AST 30.4 ALT 13.1 Alkaline Phosphatase 111.8 Troponin I 0.149 H Total Protein 7.12 Albumin 4.32 Globulin 2.80 Albumin/Globulin Ratio 1.54 Lipase 74.9 Urine Color Urine Clarity Urine pH Ur Specific [place] Urine Protein Urine Glucose (UA) Urine Ketones Urine Blood Urine Nitrite Urine Bilirubin Urine Urobilinogen Ur Leukocyte Esterase Urine Microscopic RBC Urine Microscopic WBC Ur Squamous Epith Cells Ur Renal Epithelial Cell Amorphous Sediment Urine Bacteria Hyaline Casts Influ A Molecular Assay Influ B Molecular Assay SARS CoV-2 RNA Rapid MARLENE Negative 07/05/22 07/05/22 07/05/22 13:55 13:55 15:08 WBC RBC Hgb Hct MCV MCH MCHC RDW Coeff of Alfred Plt Count Immature Gran % (Auto) Neut % (Auto) Lymph % (Auto) [place] % (Auto) Eos % (Auto) Baso % (Auto) Neut # (Auto) Lymph # (Auto) [place] # (Auto) Eos # (Auto) Baso # (Auto) Immature Gran # (Auto) Sodium Potassium Chloride Carbon Dioxide Anion Gap BUN Creatinine Estimated GFR (MDRD) BUN/Creatinine Ratio Glucose Calcium Total Bilirubin AST ALT Alkaline Phosphatase Troponin I 0.164 H Total Protein Albumin Globulin Albumin/Globulin Ratio Lipase Urine Color Dark Urine Clarity Clear Urine pH 5.5 Ur Specific [place] 1.025 Urine Protein 1+ H Urine Glucose (UA) Negative Urine Ketones 1+ H Urine Blood Negative Urine Nitrite Negative Urine Bilirubin 3+ H Urine Urobilinogen 0.2 Ur Leukocyte Esterase Negative Urine Microscopic RBC 2-5 Urine Microscopic WBC 2-5 Ur Squamous Epith Cells 2-5 Ur Renal Epithelial Cell 0-2 Amorphous Sediment Trace Urine Bacteria Trace Hyaline Casts 2-5 Influ A Molecular Assay Negative by naat Influ B Molecular Assay Negative by naat SARS CoV-2 RNA Rapid MARLENE Orders Category Date Time Status ADMIT PATIENT INPATIENT .TO [facility] (MONITORED BED) ADMISSION 07/05/22 14:54 Active EKG-(ED ONLY) Stat CARDIO 07/05/22 12:51 Completed EKG-(IP & OP ONLY) DAILY CARDIO 07/06/22 06:00 Ordered EKG-(IP & OP ONLY) DAILY CARDIO 07/07/22 06:00 Ordered ACTIVITY .Up With Assistance CARE 07/05/22 14:54 Active CASE MANAGEMENT CONSULT ONCE CARE 07/05/22 14:55 Active INTAKE & OUTPUT Q8HR CARE 07/05/22 14:55 Active IP: INSERT SALINE LOCK ONCE CARE 07/05/22 14:55 Active TELEMETRY MONITORING TELE CARE 07/05/22 14:54 Active VITAL SIGNS Q8HR CARE 07/05/22 14:55 Active REGULAR DIET DIETARY 07/05/22 Dinner Ordered CBC W/ AUTO DIFF DAILY@0600 LAB 07/06/22 06:00 Ordered CBC W/ AUTO DIFF DAILY@0600 LAB 07/07/22 06:00 Ordered CBC W/ AUTO DIFF Stat LAB 07/05/22 13:05 Completed CMP [COMPREHENSIVE METABOLIC PANEL] Stat LAB 07/05/22 13:05 Completed COMPREHENSIVE METABOLIC PANEL DAILY@0600 LAB 07/06/22 06:00 Ordered COMPREHENSIVE METABOLIC PANEL DAILY@0600 LAB 07/07/22 06:00 Ordered COVID [SARS COV-2 RNA RAPID MARLENE] Stat LAB 07/05/22 13:55 Completed FLU A & B MOLECULAR [FLU A/B MOLECULAR] Stat LAB 07/05/22 13:55 Completed LIPASE Stat LAB 07/05/22 13:05 Completed TROPONIN I DAILY@0600 LAB 07/06/22 06:00 Ordered TROPONIN I Stat LAB 07/05/22 13:05 Completed TROPONIN I Timed LAB 07/05/22 15:08 Completed URINALYSIS C & S IF INDICATED Stat LAB 07/05/22 13:55 Completed Aspirin [Aspirin EC] MEDS 07/06/22 09:00 Active 81 mg PO DAILY Enoxaparin Sodium [Lovenox] MEDS 07/06/22 09:00 Active 30 mg SUBCUT DAILY Famotidine Inj [Pepcid] MEDS 07/05/22 21:00 Active 40 mg IVP BID Famotidine [Pepcid] MEDS 07/05/22 12:49 Discontinued 20 mg PO ONCE STA Gabapentin [Neurontin] MEDS 07/06/22 09:00 Active 300 mg PO DAILY Memantine HCl [Namenda] MEDS 07/05/22 21:00 Active 10 mg PO BID Ondansetron [Zofran Odt] MEDS 07/05/22 12:49 Discontinued 4 mg PO ONCE STA Ondansetron [Zofran Odt] MEDS 07/05/22 15:00 Active 4 mg PO Q8H Potassium Chloride [K-Dur] MEDS 07/05/22 15:00 Active 20 meq PO DIRECTED Sodium Chloride 0.9% [Sodium Chloride] 1,000 ml MEDS 07/05/22 15:00 Active IV 75 mls/hr RESUSCITATION STATUS Routine OTHERS 07/05/22 14:[address] ABDOMEN/PELVIS WO CONTRAST Stat RADS 07/05/22 12:[address] HEAD W/O CONTRAST Stat RADS 07/05/22 12:49 Completed Medications Generic Name Dose Route Start Last Admin Trade Name Freq PRN Reason Stop Dose Admin Aspirin 81 mg 07/06/22 09:00 Aspirin 81 Mg Tablet.Dr PO DAILY [facility] Enoxaparin Sodium 30 mg 07/06/22 09:00 Enoxaparin Sodium 30 Mg/0.3 Ml Syr SUBCUT DAILY [facility] Famotidine 40 mg 07/05/22 21:00 Famotidine Inj 20 Mg/2 Ml Vial IVP BID [facility] Gabapentin 300 mg 07/06/22 09:00 Gabapentin 300 Mg Capsule PO DAILY JEFF Sodium Chloride 1,000 mls @ 75 mls/hr 07/05/22 15:00 07/05/22 15:22 Sodium Chloride IV 75 mls/hr .[id number] Administration Memantine 10 mg 07/05/22 21:00 Memantine Hcl 10 Mg Tablet PO BID JEFF Ondansetron HCl 4 mg 07/05/22 15:00 Ondansetron Hcl 4 Mg Tab.Rapdis PO Q8H JEFF Potassium Chloride 20 meq 07/05/22 15:00 Potassium Chloride 20 Meq Tab PO DIRECTED JEFF Discontinued Medications Generic Name Dose Route Start Last Admin Trade Name Freq PRN Reason Stop Dose Admin Famotidine 20 mg 07/05/22 12:49 07/05/22 12:55 Famotidine 20 Mg Tablet PO 07/05/22 12:50 20 mg ONCE STA Administration Ondansetron HCl 4 mg 07/05/22 12:49 07/05/22 12:56 Ondansetron Hcl 4 Mg Tab.Rapdis PO 07/05/22 12:50 4 mg ONCE STA Administration Assessment (1) Acute dehydration: Status: Acute Code(s): E86.0 - Dehydration SNOMED Code(s): 53586146 (2) Elevated troponin I level: Status: Acute Code(s): R77.8 - Other specified abnormalities of plasma proteins SNOMED Code(s): 511777881 (3) Dementia: Status: Acute Code(s): F03.90 - Unspecified dementia, unspecified severity, without behavioral disturbance, psychotic disturbance, mood disturbance, and anxiety SNOMED Code(s): 13744204 (4) Dementia: Status: Acute Code(s): F03.90 - Unspecified dementia, unspecified severity, without behavioral disturbance, psychotic disturbance, mood disturbance, and anxiety SNOMED Code(s): 39851650 Plan Plan: WILL HOLD BIPHOSPHATE AND ARICEPT TO SEE IF THEY ARE CONTRIBUTING TO THE NAUSEA---HYDRATE WITH IV FLUIDS---OF COURSE WILL NEED TO MONITOR THE TROPONIN IT MIGHT BE FALSELY ELEVATED BY THE CKD--HER EKG DOES NOT REVEAL ANY ACUTE CHANGES AND SHE DENIES CHEST PAIN BUT IT WILL NEED TO BE MONITORED---DVT PROPHLYAXIS WITH LOW DOSE LOVENOX---ADD PEPCID---ASK SUPERVISOR SHOP ABOUT poa FOR THE PATIENT--WILL ADMIT TO THE HOSPITALIST SERVICES.
[2022-07-05] MEDS: NAMENDA PO SCH (20:34)
[2022-07-05] MEDS: ZOFRAN 4 MG/2 ML IVP PRN (20:49)
[2022-07-05] MEDS ORDERED: PEPCID IVP SCH (21:00)
--- NOTE | 2022-07-06 01:51 | DI ---
EXAM: Portable chest HISTORY: Renal failure COMPARISON: Two-view chest 07/08/2020 FINDINGS: The cardiomediastinal silhouette is stable. There is no consolidation or effusion. Clips are seen within the right upper quadrant. IMPRESSION: No evidence of active pulmonary disease
[2022-07-06] MEDS ORDERED: LOVENOX SUBCUT SCH ×3 (02:00→21:00)
--- NOTE | 2022-07-06 03:26 | PCM.PROG ---
Date Seen by Provider: 07/06/22 Time Seen by Provider: 01:05 Subjective: Troponin repeat result . No chest pain , diaphoresis, distress Objective: Vitals: T=97 F, P=96, R=17, BU=522/70, KLS0=799 HEENT: [speech normal ] Neck: [nop range of motion complaints ] Lungs: [] CVS: [] Abdomen: [denies pain ] Extremities: [] Neurological: [responds to questions ] Skin: [normla] Lab/Tests/Diagnostic Imaging: [troponin 0.149 to 0.164 , PCXR NAC , EKG - no acute changes compared with prior ] (1) Acute dehydration: Status: Acute Code(s): E86.0 - Dehydration SNOMED Code(s): 71369280 (2) Elevated troponin I level: Status: Acute Code(s): R77.8 - Other specified abnormalities of plasma proteins SNOMED Code(s): 046752823 (3) Dementia: Status: Acute Code(s): F03.90 - Unspecified dementia, unspecified severity, without behavioral disturbance, psychotic disturbance, mood disturbance, and anxiety SNOMED Code(s): 43996755 (4) Dementia: Status: Acute Code(s): F03.90 - Unspecified dementia, unspecified severity, without behavioral disturbance, psychotic disturbance, mood disturbance, and anxiety SNOMED Code(s): 43105686 Plan: Discussed with family contact Mr Alfaro and ex[lained she may have had a heart attack. Discussed transfer for cath / stent / BP . He said she was a DNR ands did not want more procedures. He understands she may survive or from this and understands - phone discussion at nurses station. I did explain we would give therapuetic blood thinner ( lovenox ) and that bleeding could result or even . He voiced understanding Lovenox dose adjustment discussed with pharmacist special education assistant with . 1.For GI - add pantoprazole 40mg IV daily stopped famotidine 2.Vitals BP122/59 ,p77 - no additional BP meds at this time 3.With Sao2 98% no additional O2 4.Continue ASA 5. For possible NSTEMI lovenox 1 mg subq q 24 hrs - 50mg 6 AM ekg 7.AM labs Time spent evaluating patient , chart , studies , pharmacy call, discussing with family : 40 minutes
[2022-07-06] MEDS: SODIUM CHLORIDE 1,000 ML IV SCH ×2 (04:20→17:39)
[2022-07-06 05:10] LABS: BASOPHILS % (AUTO) 0.5 % (0.0-3.0); EOSINOPHILS # (AUTO) 0.2 K/ul (0.0-0.7); EOSINOPHILS % (AUTO) 3.3 % (0.0-7.0); HEMATOCRIT 33.3 % (37.0-47.0); HEMOGLOBIN 11.4 g/dl (12.0-16.0); IMMATURE GRANULOCYTE # (AUTO) 0.1 (0.0-1.0); LYMPHOCYTES # (AUTO) 2.4 K/uL (0.60-3.4); LYMPHOCYTES % (AUTO) 38.5 (10.0-50.0); MEAN CORPUSCULAR HEMOGLOBIN 31.6 pg (27.0-31.0); MEAN CORPUSCULAR HGB CONC 34.2 (31.8-35.4); MEAN CORPUSCULAR VOLUME 92.2 fl (81.0-99.0); MONOCYTES # (AUTO) 0.4 K/uL (0.4-2.0); MONOCYTES % (AUTO) 6.7 (0-10); NEUTROPHILS # (AUTO) 3.2 K/ul (2.0-6.9); PLATELET COUNT 206 10^3/uL (140-440); RDW COEFFICIENT OF VARIATION 15.7 % (11.6-14.8); RED BLOOD COUNT 3.61 10^6/ul (4.20-5.40); WHITE BLOOD COUNT 6.29 K/ul (4.6-10.2)
[2022-07-06 05:23] LABS: ALANINE AMINOTRANSFERASE 9.2 U/L (0-35); ALBUMIN 3.26 g/dL (3.5-5.0); ALKALINE PHOSPHATASE 78.2 U/L (53-141); ASPARTATE AMINO TRANSFERASE 28.1 U/L (14-36); BILIRUBIN,TOTAL 0.47 mg/dL (0.2-1.3); BLOOD UREA NITROGEN 18.7 mg/dL (7-17); CALCIUM 8.8 mg/dL (8.4-10.2); CARBON DIOXIDE 21.6 mmol/L (22-30.0); CHLORIDE 102.6 mmol/L (98-107); CREATININE 1.03 mg/dL (0.60-1.30); MAGNESIUM 1.51 mg/dL (1.6-2.3); POTASSIUM 3.62 mmol/L (3.5-5.1); SODIUM 131.6 mmol/L (134.5-145); TOTAL PROTEIN 5.61 g/dL (6.3-8.2)
[2022-07-06 05:32] LABS: TROPONIN I 0.175 ng/ml (0.0000-0.120)
[2022-07-06] MEDS: ZOFRAN 4 MG/2 ML IVP PRN (07:48)
[2022-07-06] MEDS: PROTONIX IV IVP SCH (09:35)
[2022-07-06] MEDS: K-DUR PO SCH ×2 (09:35→17:39)
[2022-07-06] MEDS: NAMENDA PO SCH ×2 (09:35→20:38)
[2022-07-06] MEDS: ASPIRIN EC PO SCH (09:35)
[2022-07-06] MEDS: NEURONTIN PO SCH (09:35)
--- NOTE | 2022-07-06 10:34 | PCM.PROG ---
Date Seen by Provider: 07/06/22 Time Seen by Provider: 09:30 Subjective: Oral intake is fair to poor. Patient quite weak. Remains nauseated. Denies chest pain. Objective: Vitals: T=97.3 F, P=74, R=18, QG=937/62, WNK4=535 Patient appears to be weak and chronically ill. She is very thin. HEENT: [] Oral mucosa moist. Neck: [] Lungs: [] Chest clear. CVS: [] RRR Abdomen: [] Soft and nontender. Extremities: [] Neurological: [] Alert but somewhat confused. Skin: [] Lab/Tests/Diagnostic Imaging: [] (1) Acute dehydration: Status: Acute Code(s): E86.0 - Dehydration SNOMED Code(s): 32040692 Assessment: Hydration status improved. (2) Elevated troponin I level: Status: Acute Code(s): R77.8 - Other specified abnormalities of plasma proteins SNOMED Code(s): 218383720 Assessment: Troponin level mildly elevated from yesterday; .164 to .175. Patient remains on lovenox. (3) Dementia: Status: Acute Code(s): F03.90 - Unspecified dementia, unspecified severity, without behavioral disturbance, psychotic disturbance, mood disturbance, and anxiety SNOMED Code(s): 65351601 (4) Low magnesium level: Status: Acute Code(s): R79.0 - Abnormal level of blood mineral SNOMED Code(s): 473562019 Assessment: Magnesium 1.5 this morning. (5) Nausea & vomiting: Status: Acute Code(s): R11.2 - Nausea with vomiting, unspecified SNOMED Code(s): 24696408 Assessment: Remains nauseated. Plan: Encourage oral intake. Will change zofran to Q6 hr scheduled. Replace magnesium. Continue lovenox.
[2022-07-06] MEDS ORDERED: MAG-OX PO ONE (10:41)
[2022-07-06] MEDS: ZOFRAN 4 MG/2 ML IVP SCH ×2 (13:52→23:45)
--- NOTE | 2022-07-06 14:06 | RS.PTINEVL ---
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 Home Environment: House, Stairs (few) Medical History: Hypertension, Dementia, Arthritis Medical History Comments:: osteoporosis, Surgical History: Knee Replacement, Cholecystectomy, Hysterectomy Surgical History Comments:: bladder sx, appey Medications: see chart Subjective Information/ Patient Comments:: pt states that she is still feeling nauseated however would like to try to walk. pt reports that she did not sleep well last night. - Level of function Current Level of Function: Partially Dependent Current Equipment Used at Home: shower chair, walker, cane, cpap? Pain Assessement - Location BLE and back Description: Throbbing, Aching Pain Behavior: Guarding, Facial Grimacing Pain Aggravating Factors: Changing Position, Exercise/Activity Interventions - Objective Patient Orientation: Person, Place Current Interventions: IV's, Telemetry Observation: pt with increased kyphosis, rounded shlds, forward head. Range of Motion - ROM Right Upper Extremity AROM: WFL's Left Upper Extremity AROM: WFL's Right Lower Extremity AROM: WFL's Left Lower Extremity AROM: WFL's Muscle Strength - Muscle Strength Right Upper Extremity Strength: Mild Weakness (grossly 4/5) Left Upper Extremity Strength: Mild Weakness (grossly 4/5) Right Lower Extremity Strength: Mild Weakness (hip flex 4-/5, knee flex/ext 4/5, ankle DF/PF 4/5) Left Lower Extremity Strength: Mild Weakness (hip flex 4-/5, knee flex/ext 4/5, ankle DF/PF 4/5) Sensation - Sensation Right Upper Extremity Sensation: Intact/Normal Left Upper Extremity Sensation: Intact/Normal Right Lower Extremity Sensation: Impaired Left Lower Extremity Sensation: Impaired Comments: n/t in B feet Palpation Palpation Findings: None/Normal Balance - Sitting Balance and Reactions Static Sitting Balance: Good (good-) Dynamic Sitting Balance: Fair (fair) - Standing Balance and Reactions Static Standing Balance: Poor Dynamic Standing Balance: Poor Standing Equilibrium Reactions: Delayed Left, Delayed Right Standing Protective Reactions: Delayed Left, Delayed Right Functional Mobility - Bed Mobility Rolling R/L: CGA Supine to Sit: CGA Sit to Supine: CGA - Transfers Sit to Stand: CGA Stand to Sit: CGA - Safety Awareness Safety Awareness: Fair REID INDEX SCORE: n/a Ambulation - Ambulation Assistive Device Used: Rolling Walker Orthotic/Prosthetic Device: No Distance: 45ft x 2 Assistance needed with Ambulation: CGA, Min Assist, 1 person assist Gait Deviations: Forward posture, Short stride Ambulation Comments: pt with decreased step length, required cues for sequencing with rwx. Factors Affecting Ambulation: Decreased Balance, Weakness, Dizziness, Limited Endurance, Limited Sensation Treatment time - Time with patient Length of Evaluation: 19 Total treatment time: 29 Patient Education - Education Patient Education: Activity Modification, Education of Plan of Care Teaching Recipient: Patient Teaching Methods: Discussion Comments: discussion regarding POC Assessment - Assessment Problem List:: Decreased level of function, Requires training/education, Decreased safety/Risk of falls, Weakness, Cognitive status limits abilities Rehab Potential: Good Further Therapy Indicated?: Yes Candidate for Swing Bed for Therapy Services?: Feel pt may not be a candidate for swing bed due to may require LTC Evaluation Complexity: HISTORY: Medium, EXAM OF BODY SYSTEMS: Medium, CLINICAL PRESENTATION: Medium, CLINICAL DECISION MAKING: Medium Patient's Goal(s): get stronger and walk better. Short Term Goals GOAL #1: Rolling and scooting in bed independently Goal to be met by: 07/08/22 GOAL #2: Transfer sup to/from sit SBA Goal to be met by: 07/08/22 GOAL #3: Sit to/from stand SBA Goal to be met by: 07/08/22 GOAL #4: pt amb with rwx 100ft with no seated rest periods with CGA. Goal to be met by: 07/08/22 Press Smith Helper Goals GOAL #1: pt transfer sup to/from sit to/from stand SB to independent. Goal to be met by: 07/10/22 GOAL #2: pt amb functional household distances with rwx with SBA no LOB. Goal to be met by: 07/10/22 GOAL #3: Improve dyn stand balance fair Goal to be met by: 07/10/22 Plan Plan of Care: Therapeutic EX, Therapeutic Activity Other:: gait training Frequency of Treatment: 1-2 X day, as tolerated Duration of Treatment: 5 days Anticipated Discharge Destination: undetermined Treatment Diagnosis (ICD 10 Codes): difficulty walking R 26.2. impaired balance R26.81. muscle weakness M 62.81 Has the Physician been added for Co-signature?: Yes
[2022-07-07 05:30] LABS: BASOPHILS % (AUTO) 0.5 % (0.0-3.0); EOSINOPHILS # (AUTO) 0.2 K/ul (0.0-0.7); EOSINOPHILS % (AUTO) 4.4 % (0.0-7.0); HEMATOCRIT 29.8 % (37.0-47.0); HEMOGLOBIN 10.4 g/dl (12.0-16.0); IMMATURE GRANULOCYTE # (AUTO) 0.1 (0.0-1.0); IMMATURE GRANULOCYTE % (AUTO) 1.1 % (0.0-5.0); LYMPHOCYTES # (AUTO) 2.4 K/uL (0.60-3.4); LYMPHOCYTES % (AUTO) 43.1 (10.0-50.0); MEAN CORPUSCULAR HEMOGLOBIN 32.3 pg (27.0-31.0); MEAN CORPUSCULAR HGB CONC 34.9 (31.8-35.4); MEAN CORPUSCULAR VOLUME 92.5 fl (81.0-99.0); MONOCYTES # (AUTO) 0.3 K/uL (0.4-2.0); MONOCYTES % (AUTO) 6.2 (0-10); NEUTROPHILS # (AUTO) 2.5 K/ul (2.0-6.9); NEUTROPHILS % (AUTO) 44.7 % (42.2-75.2); PLATELET COUNT 168 10^3/uL (140-440); RDW COEFFICIENT OF VARIATION 15.7 % (11.6-14.8); RED BLOOD COUNT 3.22 10^6/ul (4.20-5.40)
[2022-07-07 05:40] LABS: ALANINE AMINOTRANSFERASE 9.5 U/L (0-35); ALBUMIN 2.79 g/dL (3.5-5.0); ALKALINE PHOSPHATASE 69.5 U/L (53-141); ASPARTATE AMINO TRANSFERASE 26.3 U/L (14-36); BILIRUBIN,TOTAL 0.43 mg/dL (0.2-1.3); BLOOD UREA NITROGEN 8.9 mg/dL (7-17); CALCIUM 8.11 mg/dL (8.4-10.2); CARBON DIOXIDE 22.3 mmol/L (22-30.0); CREATININE 0.8 mg/dL (0.60-1.30); GLUCOSE 71.1 mg/dL (74-106); POTASSIUM 3.76 mmol/L (3.5-5.1); SODIUM 128.6 mmol/L (134.5-145); TOTAL PROTEIN 4.97 g/dL (6.3-8.2)
[2022-07-07] MEDS: ZOFRAN 4 MG/2 ML IVP SCH ×2 (05:47→07:57)
[2022-07-07] MEDS: SODIUM CHLORIDE 1,000 ML IV SCH ×2 (07:14→21:38)
[2022-07-07 08:45] LABS: CREATINE KINASE 50.8 U/L (30-135); MAGNESIUM 1.5 mg/dL (1.6-2.3)
--- NOTE | 2022-07-07 08:46 | PCM.PROG ---
Date Seen by Provider: 07/07/22 Time Seen by Provider: 08:20 Subjective: Patient was admitted with acute dehydration 2 days ago and started on IV fluids, She was noted to have an elevated Troponin. Denies any chest pain at rest but has chest pain on the left side with some activy such as walking. She states that her nausea is better with zofran. Objective: Vitals: T=97 F, P=72, R=18, VL=475/65, SPO2=99 HEENT: [mucus membranes moist] Neck: [supple ] Lungs: [Clinically clear ] CVS: [Regular S1 and S2 ] Abdomen: [Soft Mild tenderness to palpation on the Epigastric area ] Extremities: [no edema. Good rage of motion. Ambulating without difficulty ] Neurological: [ AAOx 3 no focal neurological deficits] Skin: [no rash] Lab/Tests/Diagnostic Imaging: [ Laboratory Results - last 24 hr 07/07/22 07/07/22 07/07/22 04:56 04:56 04:56 WBC 5.50 RBC 3.22 L Hgb 10.4 L Hct 29.8 L MCV 92.5 MCH 32.3 H MCHC 34.9 RDW Coeff of Alfred 15.7 H Plt Count 168 Immature Gran % (Auto) 1.1 Neut % (Auto) 44.7 Lymph % (Auto) 43.1 [place] % (Auto) 6.2 Eos % (Auto) 4.4 Baso % (Auto) 0.5 Neut # (Auto) 2.5 Lymph # (Auto) 2.4 [place] # (Auto) 0.3 L Eos # (Auto) 0.2 Baso # (Auto) 0.0 Immature Gran # (Auto) 0.1 Sodium 128.6 L Potassium 3.76 Chloride 102.0 Carbon Dioxide 22.3 Anion Gap 8.06 BUN 8.9 Creatinine 0.80 Estimated GFR (MDRD) 70.00 BUN/Creatinine Ratio 11.12 Glucose 71.1 L Calcium 8.11 L Magnesium 1.50 L Total Bilirubin 0.43 AST 26.3 ALT 9.5 Alkaline Phosphatase 69.5 Total Creatine Kinase 50.8 Total Protein 4.97 L Albumin 2.79 L Globulin 2.18 Albumin/Globulin Ratio 1.27 ] (1) Acute dehydration: Status: Acute Code(s): E86.0 - Dehydration SNOMED Code(s): 12064869 Assessment: Improved with IV fluids. Tolerating Fluids ok with Zofran scheduled. Wants it to be PRN. (2) Elevated troponin I level: Status: Acute Code(s): R77.8 - Other specified abnormalities of plasma proteins SNOMED Code(s): 027544683 Assessment: With Chest pain on ambulation several steps. on Asprin - Will get cardiology consult this AM (3) Dementia: Status: Acute Code(s): F03.90 - Unspecified dementia, unspecified severity, without behavioral disturbance, psychotic disturbance, mood disturbance, and anxiety SNOMED Code(s): 93385122 Assessment: Stable on Donepezil and Memantine -CONTINUE CURRENT TREATMENT (4) Low magnesium level: Status: Acute Code(s): R79.0 - Abnormal level of blood mineral SNOMED Code(s): 248745598 Assessment: Given Potassium yesterday will get follow up labs today. continue to replace if needed. (5) Nausea & vomiting: Status: Acute Code(s): R11.2 - Nausea with vomiting, unspecified SNOMED Code(s): 22753038 Assessment: Improved on Zofran may be Angina Equivalent. as above will get cardiology input for NSTEMI Plan: ABOVE CARDIOLOGY CONSULT CONTINUE TO MAKE DISCHARGE PLANNING TO [facility] WITH HIS BROTHER.
[2022-07-07] MEDS: NAMENDA PO SCH ×2 (08:50→20:37)
[2022-07-07] MEDS: NEURONTIN PO SCH (08:50)
[2022-07-07] MEDS: K-DUR PO SCH ×2 (08:50→17:04)
[2022-07-07] MEDS: ASPIRIN EC PO SCH (08:50)
[2022-07-07] MEDS: LOVENOX SUBCUT SCH ×2 (08:51→20:38)
[2022-07-07 08:56] LABS: CHOLESTEROL 113.9 mg/dL (0-200); HDL CHOLESTEROL 57.6 mg/dL (35-80); TRIGLYCERIDES 119.6 mg/dL (0-150)
[2022-07-07] MEDS: PROTONIX IV IVP SCH (09:10)
[2022-07-07] MEDS: ZOFRAN 4 MG/2 ML IVP PRN ×2 (09:10→17:33)
[2022-07-07 09:27] LABS: THYROID STIMULATING HORMONE 0.582 uIU/L (0.465-4.68)
--- NOTE | 2022-07-07 10:24 | RS.COGEVAL ---
Subjective Date of Evaluation: 07/07/22 Diagnosis: Dehydration Current Level of Function: This is a 76 year old female whom resides in her home with a brother. She had a recent hospitalization and participated in acute rehab program; returned home and became weak from GI disturbance. The patient currently is denying food and liquids due to limited appetite and specific eating pattern. Patient also has loose fitting dentures and reports from recent weight loss. IN HOME AIDE will complete cognitive assessment to identify pt's cognizant level for pt to assist with medical decisions and care planning. Current Diet: Soft foods; favorite food is peanut butter/jelly sandwich. Current Subjective/complaints:: The patient was upright in the recliner upon IN HOME AIDE entry. She was cooperative and participated with cognitive assessment. The patient was tearful when discussing potential placement for LTC facility; due to her wants of brother to come along and stay with her in the facility. The patient reported she will go to LTC, but, "only if my brother can come too; I can't leave him alone for more than a few days, he needs my help." The patient also discussed concerns for her bill management and stated, "my cousin Tyler can help with that." Medical History Comments:: Dehydration; dementia; weakness; nausea and vomiting; Recent head CT unremarkable Information History:: The patient reported she lives with her brother. She cannot complete house chores, medication management or financial supervisor tasks independently. She had a recent stay in the retirement and then returned home. However, she became ill with GI disturbance and had difficulty with strength for mobility and home management tasks. 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 She utilizes a walker. She denies driving and did not report family members to help her with transportation for medical appointments. Informal Assessment:: IN HOME AIDE informally asked 'wh' questions regarding current hospital admission. The patient provided intermittent details, recalled doctors names, and provided simple phrases with medical diagnoses. The patient provided names of family members whom may help her with home management tasks. The patient did present with mild hearing loss and required repetition frequently with longer statements. During open-ended conversation, the patient verbalized reasoning skills for needs for retirement. The IN HOME AIDE informally assessed the pt's swallow, voice, and breath support and no deficits were reported or pt presented at her functional level. Formal/Objective Assessment:: SLUMS assessment completed. The patient scored 22/30 which indicates mild cognitive impairment. Orientation 3/3, Problem solving 3/3, immediate recall 4/5, delayed recall 2/5, naming 3/3, Mental flexibility 1/2, clock drawing 0/4, following simple directions 2/2, auditory comprehension 8/8. TOTAL 22/30-MILD COGNITIVE IMPAIRMENT. The patient demonstrated moderate deficits with memory recall, mental flexibility, and clock drawing. Analysis:: The patient demonstrated moderate deficits with drawing a clock, recalling words with 3-5 minute delay, and mild-moderate difficulty with mental flexibility tasks. During structured conversation, the patient required repetition and rephrasing of statements intermittently to increase understanding of information. The IN HOME AIDE suspects pt has mild hearing loss, which can also present as dementia or cognitive impairment. Summary and Recommendations:: The patient presented with mild-moderate cognitive impairments as evidenced by the SLUMS examination. The patient had no deficits with orientation, problem solving, expressive language, auditory comprehension, and following directions. She demonstrated mild-moderate deficits with memory recall, clock drawing, and mental flexibility tasks. At this time, the patient verbalizes need for assistance with medication and financial supervisor, and verbalizes deficits with physical mobility. The patient would benefit from retirement placement. 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 Functional Reporting G Codes: n/a Severity Impairment Rationale: n/a Short Term Goals Goal #1: Recall medical info w/ 80% accuracy given verbal prompts Goal to be met by: 07/13/22 Goal #2: Complete mental flexibility tasks w/ 80% w/ v/v cues Goal to be met by: 07/13/22 Goal #3: Complete verbal reasoning tasks w/ 80% accuracy independ. [place]aver Goals Goal #1: Verbalize/demonstrate 80% accuracy with cognitive tasks Goal to be met by: 07/13/22 Plan Duration of Treatment: 1 Week Frequency of Treatment: 1x/day Anticipated Discharge Destination: [facility] - Treatment Code (1) Mild cognitive impairment Code(s): G31.84 - Mild cognitive impairment of uncertain or unknown etiology (2) Acute dehydration Code(s): E86.0 - Dehydration (3) Nausea & vomiting Code(s): R11.2 - Nausea with vomiting, unspecified
[2022-07-07] MEDS: NICODERM 14 MG TD SCH (10:53)
[2022-07-08] MEDS: ASPIRIN EC PO SCH (08:41)
[2022-07-08] MEDS: PROTONIX IV IVP SCH (08:41)
[2022-07-08] MEDS: NEURONTIN PO SCH (08:42)
[2022-07-08] MEDS: NAMENDA PO SCH ×2 (08:42→20:35)
[2022-07-08] MEDS: K-DUR PO SCH ×2 (08:42→16:49)
[2022-07-08] MEDS: ZOFRAN 4 MG/2 ML IVP PRN (08:42)
[2022-07-08] MEDS: NICODERM 14 MG TD SCH (08:43)
[2022-07-08] MEDS: LOVENOX SUBCUT SCH ×2 (08:44→20:36)
[2022-07-08] MEDS: SODIUM CHLORIDE 1,000 ML IV SCH ×2 (09:01→22:39)
--- NOTE | 2022-07-08 10:36 | PCM.PROG ---
Date Seen by Provider: 07/08/22 Time Seen by Provider: 09:20 Subjective: Still nauseated. Having diarrheal stools. Patient getting out of bed and taking short walks. Objective: Vitals: T=97.1 F, P=73, R=16, YN=491/69, SPO2=99 Alert and in NAD. HEENT: [] Neck: [] Lungs: [] Clear. Breath sounds equal. CVS: [] RRR Abdomen: [] Soft, nondistended and nontender. Extremities: [] No edema. Neurological: [] Skin: [] Lab/Tests/Diagnostic Imaging: [] (1) Mild cognitive impairment: Status: Acute Code(s): G31.84 - Mild cognitive impairment of uncertain or unknown etiology SNOMED Code(s): 429149922 Assessment: Stable. (2) Acute dehydration: Status: Acute Code(s): E86.0 - Dehydration SNOMED Code(s): 41770328 Assessment: Fluid status normalized. (3) Nausea & vomiting: Status: Acute Code(s): R11.2 - Nausea with vomiting, unspecified SNOMED Code(s): 68571029 Assessment: Will try compazine. Patient had nausea prior to admission. (4) Diarrhea: Status: Acute Code(s): R19.7 - Diarrhea, unspecified SNOMED Code(s): 37318752 Assessment: Patient had diarrhea prior to admission. (5) Elevated troponin I level: Status: Acute Code(s): R77.8 - Other specified abnormalities of plasma proteins SNOMED Code(s): 613229448 Plan: Add compazine. Check stool studies, C. diff.
[2022-07-08] MEDS: COMPAZINE PO PRN (12:16)
--- NOTE | 2022-07-08 12:50 | ECHO2D ---
Date of Exam: 07/08/2022 Ordering Physician: ANIBALIST/ DR. OSWALD Room #: 103 Reason for Echo: POSSIBLE FL M-Mode Normal Adult Results LV Dimensions Normal Adult Results AoV Opening excursions >1.6 >1.6 LVEDD-base- 3.5-5.8 4.5 Ao root dimensions 2.0-3.7 2.9 LVESD-base- 3.1-4.6 L. Atrium dimensions 1.9-3.8 3.8 Post. Wall thickness 0.8-1.1 1.1 IV septum (thickness) 0.7-1.2 1.2 Post. Wall excursion 0.72-1.3 NORMAL Septal motion NORMAL Systolic motion R. Ventricular cavity 1.5-2.0 3.0 LVEF 60% 63% Paradoxical septal wall motion NORMAL 2-D : 2-D M Mode Echocardiogram was performed using apical four chamber and left parasternal long and short axis views. Mitral, tricuspid and aortic valves appear to be normal. Contractility of the left ventricle seems to be normal, so is the cavity size. Left atrial cavity size and aortic root appear to be normal. There is no pericardial effusion. There is no thrombus noted in the left ventricle or left atrial cavity. RIGHT VENTRICLE CAVITY ENLARGEMENT M-MODE: MV: NORMAL AV: NORMAL TV: NORMAL PV: UNABLE TO GET CHAMBER SIZE:RIGHT VENTRICLE CAVITY ENLARGEMENT WALL MOTION: NORMAL PERICARDIUM: NORMAL INTERPRETATION: 1. BORDERLINE LEFT VENTRICLE HYPERTROPHY 2. RIGHT VENTRICLE CAVITY ENLARGEMENT 3. NORMAL VALVES 4. NORMAL LEFT VENTRICLE CONTRACTILITY AND LEFT VENTRICLE SIZE MTDD
[2022-07-09] MEDS ORDERED: MAGNESIUM SULFATE 1 GM/2 ML VIAL IVP ONE (07:34)
[2022-07-09] MEDS ORDERED: MAGNESIUM SULFATE 1 GM/100 ML D5W 1 GM/100 ML BAG IV ONE (08:00)
[2022-07-09] MEDS: PROTONIX IV IVP SCH (09:17)
[2022-07-09] MEDS: NICODERM 14 MG TD SCH (09:17)
[2022-07-09] MEDS: NAMENDA PO SCH ×2 (09:18→21:12)
[2022-07-09] MEDS: ASPIRIN EC PO SCH (09:18)
[2022-07-09] MEDS: NEURONTIN PO SCH (09:18)
[2022-07-09] MEDS: LOVENOX SUBCUT SCH ×2 (09:18→21:12)
[2022-07-09] MEDS: K-DUR PO SCH ×2 (09:18→16:39)
[2022-07-09] MEDS: ZOFRAN 4 MG/2 ML IVP PRN (09:35)
--- NOTE | 2022-07-09 14:55 | PCM.DC ---
Final Diagnosis: Dehydration Physical Exam Appearance: Well-appearing Ill-appearing: None Pain Distress: None Eyes: JONATAN, EOMI and Conjunctiva clear ENT: Nose normal and Oropharynx normal Neck: Supple Respiratory: Airway patent Cardiovascular: RRR, Pulses normal and No rub GI/: Soft, Nontender and No masses Musculoskeletal: Normal strength and ROM intact Skin: Warm, Dry and Normal color Neurological: Sensation intact, Motor intact, Alert and Oriented Psychiatric: Affect appropriate and Mood appropriate (1) Mild cognitive impairment: Status: Acute Code(s): G31.84 - Mild cognitive impairment of uncertain or unknown etiology SNOMED Code(s): 263731604 (2) Acute dehydration: Status: Acute Code(s): E86.0 - Dehydration SNOMED Code(s): 82886623 (3) Nausea & vomiting: Status: Acute Code(s): R11.2 - Nausea with vomiting, unspecified SNOMED Code(s): 31406716 (4) Diarrhea: Status: Acute Code(s): R19.7 - Diarrhea, unspecified SNOMED Code(s): 21709414 (5) Elevated troponin I level: Status: Acute Code(s): R77.8 - Other specified abnormalities of plasma proteins SNOMED Code(s): 781760359
[2022-07-09] MEDS: SODIUM CHLORIDE 1,000 ML IV SCH (15:03)
[2022-07-10 04:52] VITALS: BP 119/65; TEMP 98
[2022-07-10 05:29] LABS: BASOPHILS % (AUTO) 0.5 % (0.0-3.0); EOSINOPHILS # (AUTO) 0.2 K/ul (0.0-0.7); EOSINOPHILS % (AUTO) 5.6 % (0.0-7.0); HEMATOCRIT 31.6 % (37.0-47.0); HEMOGLOBIN 10.7 g/dl (12.0-16.0); IMMATURE GRANULOCYTE % (AUTO) 0.8 % (0.0-5.0); LYMPHOCYTES # (AUTO) 1.5 K/uL (0.60-3.4); LYMPHOCYTES % (AUTO) 39.5 (10.0-50.0); MEAN CORPUSCULAR HEMOGLOBIN 31.6 pg (27.0-31.0); MEAN CORPUSCULAR HGB CONC 33.9 (31.8-35.4); MEAN CORPUSCULAR VOLUME 93.2 fl (81.0-99.0); MONOCYTES # (AUTO) 0.4 K/uL (0.4-2.0); NEUTROPHILS # (AUTO) 1.7 K/ul (2.0-6.9); NEUTROPHILS % (AUTO) 44.6 % (42.2-75.2); PLATELET COUNT 147 10^3/uL (140-440); RDW COEFFICIENT OF VARIATION 15.6 % (11.6-14.8); RED BLOOD COUNT 3.39 10^6/ul (4.20-5.40)
[2022-07-10 05:50] LABS: ALANINE AMINOTRANSFERASE 9.8 U/L (0-35); ALBUMIN 2.78 g/dL (3.5-5.0); ALKALINE PHOSPHATASE 64.5 U/L (53-141); ASPARTATE AMINO TRANSFERASE 26.6 U/L (14-36); BILIRUBIN,TOTAL 0.41 mg/dL (0.2-1.3); CALCIUM 8.33 mg/dL (8.4-10.2); CARBON DIOXIDE 28.7 mmol/L (22-30.0); CHLORIDE 95.7 mmol/L (98-107); GLUCOSE 71.4 mg/dL (74-106); MAGNESIUM 1.55 mg/dL (1.6-2.3); POTASSIUM 4.24 mmol/L (3.5-5.1); SODIUM 125.6 mmol/L (134.5-145); TOTAL PROTEIN 4.95 g/dL (6.3-8.2)
[2022-07-10 05:58] LABS: BLOOD UREA NITROGEN < 2.0 mg/dL (7-17)
[2022-07-10] MEDS ORDERED: MAG-OX PO ONE (09:16)
[2022-07-10] MEDS: NICODERM 14 MG TD SCH (09:59)
[2022-07-10] MEDS: COMPAZINE PO PRN (10:00)
[2022-07-10] MEDS: ASPIRIN EC PO SCH (10:00)
[2022-07-10] MEDS: PROTONIX IV IVP SCH (10:00)
[2022-07-10] MEDS: NEURONTIN PO SCH (10:01)
[2022-07-10] MEDS: K-DUR PO SCH (10:01)
[2022-07-10] MEDS: NAMENDA PO SCH (10:01)
[2022-07-10] MEDS: LOVENOX SUBCUT SCH (10:02)
--- NOTE | 2022-07-10 10:27 | PCM.DC ---
Final Diagnosis: Acute Dehydration Elevated Trop I Nasuea and Vomiting Physical Exam Appearance: Well-appearing, No pain distress and Well-nourished Ill-appearing: None Pain Distress: None Eyes: JONATAN, EOMI and Conjunctiva clear ENT: Ears normal, Nose normal and Oropharynx normal Neck: Supple Respiratory: Airway patent, Breath sounds clear, Breath sounds equal and Res pirations nonlabored Cardiovascular: RRR, Pulses normal, No rub and No murmur GI/: Soft, Nontender, No masses, Bowel sounds normal and No Organomegaly Musculoskeletal: Normal strength, ROM intact, No edema and No calf tenderness Skin: Warm, Dry and Normal color Neurological: Sensation intact, Motor intact, Reflexes intact, Cranial nerves intact, Alert and Oriented Psychiatric: Affect appropriate and Mood appropriate (1) Mild cognitive impairment: Status: Acute Code(s): G31.84 - Mild cognitive impairment of uncertain or unknown etiology SNOMED Code(s): 625798181 (2) Acute dehydration: Status: Acute Code(s): E86.0 - Dehydration SNOMED Code(s): 53423715 (3) Nausea & vomiting: Status: Acute Code(s): R11.2 - Nausea with vomiting, unspecified SNOMED Code(s): 29311315 (4) Diarrhea: Status: Acute Code(s): R19.7 - Diarrhea, unspecified SNOMED Code(s): 47031952 (5) Elevated troponin I level: Status: Acute Code(s): R77.8 - Other specified abnormalities of plasma proteins SNOMED Code(s): 790920038 Reason for Hospitalization: Pt was admitted for dehydration, nasuea, vomiing and elevated trop i Prognosis/Condition at Discharge: 1. Fair and Stable Medications at Discharge: Home Meds, no new medications Lab/Diagnostics: Na 125, WBC of 3.9. Mag of 1.55 Education Provided to Patient and Family: Make sure to stay hydrated Follow-ups: 1. Follow up with the [facility] provider in 1 week. [facility]charge Disposition: [facility] Hospital Course: 1. Pt was admitted and treated for dehydration. Serial troponins were followed and improved. Her appetite was advanced and she was eating and drinking the morning of discharge wanting to return to the [facility]. Plan: 1. DC to [facility] to be rechecked in about 1 week.
--- NOTE | 2022-07-10 11:14 | CONS ---
DATE OF CONSULTATION: 07/07/22 HISTORY OF PRESENT ILLNESS: 76 year old white female hospitalized with acute gastroenteritis and dehydration. REVIEW OF SYSTEMS: CONSTITUTIONAL: No night sweats. No fatigue, malaise, lethargy. No fever or chills. HEENT: Eyes: No visual changes. No eye pain. No eye discharge. ENT: No sinus drainage. No epistaxis. No sinus pain. No sore throat. No odynophagia. No ear pain. No congestion. RESPIRATORY: No cough, no congestion. No hemoptysis. No shortness of breath. CARDIOVASCULAR: No angina symptoms. No CHF symptoms. No atypical chest pain for CAD. No palpitations. No orthopnea. GASTROINTESTINAL: No abdominal pain. No nausea or vomiting. No diarrhea or constipation. No hematemesis. No hematochezia. GENITOURINARY: No urgency. No frequency. No dysuria. No hematuria. No obstructive symptoms. No discharge. No pain. No significant abnormal bleeding. MUSCULOSKELETAL: No musculoskeletal pain. No joint swelling. NEUROLOGICAL: No headache. No neck pain. No syncope. No seizures. No dizziness. PSYCHIATRIC: Not anxious. No depression. No suicidal thoughts. No homicidal thoughts. SKIN: No rash. No lesions. No wounds. ENDOCRINE: No unexplained weight loss. No weight gain. HEMATOLOGIC/LYMPHATIC: No anemia. No purpura. No petechiae. No prolonged or excessive bleeding. No palpable lymph nodes. MEDICATIONS: Gabapentin Donepezil Memantine Aspirin Zofran Potassium ALLERGIES: No known allergies. PAST MEDICAL HISTORY: Dementia Anxiety syndrome Neuropathy Heavy smoking Chronic lung disease SOCIAL/PERSONAL/FAMILY HISTORY: The patient lives with the brother. Tries to do all activity of daily living. PHYSICAL EXAMINATION: GENERAL: The patient is oriented to time, place and person, recognized me and called me by name. VITAL SIGNS: Temperature 98, pulse 70, respiratory rate 15, blood pressure 130/70 and pulse ox 98% on room air. HEENT: Head normocephalic, atraumatic. Eyes: Extraocular muscles are intact. Pupils are equal, round and reactive to light and accommodation. Ears: No lesions. Nose appeared normal. Throat: No exudate or erythema. NECK: Supple. No JVD, no carotid bruit. No lymphadenopathy or thyromegaly. LUNGS: Decreased breath sounds but clear to auscultation. Percussion note normal. Chest symmetrical. HEART: S1, S2, no S3. No murmurs. No cyanosis or clubbing. No ascites. Pulses: Dorsalis pedis and posterior tibial pulses +1 to +2 bilaterally. ABDOMEN: Soft. Nontender. Bowel sounds active. No CVA tenderness. No mass felt. EXTREMITIES: 2+ bilaterally edema. Full range of motion of all extremities, equal. NEUROLOGIC: No focal deficit. Cranial nerves II through XII are grossly intact. No headache, no double vision or headache. SKIN: Not dry. Intact. Turgor - normal. She looks somewhat pale. LYMPHATIC: No palpable lymph nodes/no lymphedema. MUSCULOSKELETAL: Normal joints with no swelling. Muscle tone is normal. LABS: Hgb 10.4, hct 29, WBC 5,500 normal differential, creatinine 0.8, BUN 8, Potassium 3.7, Troponin 0.112. Mildly elevated Troponin on admission. CKMB done today is negative. Lipid profile Cholesterol 113, low with LDL of 32, T4 TSH negative. EKG sinus rhythm. Non specific ST-T wave change. No acute changes noted times two. Telemetry strips no significant arrhythmia. No ST-T wave change of any significance. ASSESSMENT: 1. Troponin elevation on admission was the reason for consult which is not supported by any acute myocardial event. Negative CKMB, Negative EKGs, clinically findings for the cardiovascular system. No symptoms of coronary insufficiency. 2. Chronic lung disease with smoking. with smoking 3. Chronic anemia 4. Of course the patient's main problem is acute gastroenteritis and diarrhea. being investigated for C-Diff etc. RECOMMENDATIONS: 1. Do echo in the morning. 2. Continue monitor telemetry 3. Will follow the patient. Thank you very much for referral. RENATA
--- NOTE | 2022-07-10 11:19 | CONS ---
DATE OF SERVICE: 07/08/22 CONSULT FOLLOWUP SUBJECTIVE: 76 year old white female being seen on consultation for elevation of Troponin the patient has negative cardiovascular system and respiratory system. Appetite according to the patient seems to be improving. The patient is not in any distress. REVIEW OF SYSTEMS: CONSTITUTIONAL: No night sweats. No fatigue, malaise, lethargy. No fever or chills. HEENT: Eyes: No visual changes. No eye pain. No eye discharge. ENT: No runny nose. No epistaxis. No sinus pain. No sore throat. No odynophagia. No ear pain. No congestion. RESPIRATORY: No cough, no congestion. No hemoptysis. CARDIOVASCULAR: No angina symptoms. No CHF symptoms. No atypical chest pain for CAD. No palpitations. No shortness of breath. GASTROINTESTINAL: No abdominal pain. No nausea or vomiting. No diarrhea or constipation. No hematemesis. No hematochezia. GENITOURINARY: No urgency. No frequency. No dysuria. No hematuria. No obstructive symptoms. No discharge. No pain. No significant abnormal bleeding. MUSCULOSKELETAL: No musculoskeletal pain. No joint swelling. No arthritis. NEUROLOGICAL: No headache. No neck pain. No syncope. No seizures. No dizziness. PSYCHIATRIC: Not anxious. No depression. No suicidal thoughts. No homicidal thoughts. SKIN: No rash. No lesions. No wounds. ENDOCRINE: No unexplained weight loss. No weight gain. HEMATOLOGIC/LYMPHATIC: No anemia. No purpura. No petechiae. No prolonged or excessive bleeding. No palpable lymph nodes. PHYSICAL EXAMINATION: VITAL SIGNS: Temperature 97.1, pulse 73, respiratory rate 16, blood pressure 123/69 and pulse ox 99% on room air. HEENT: Head normocephalic, atraumatic. Eyes: Extraocular muscles are intact. Pupils are equal, round and reactive to light and accommodation. Ears: No lesions. Nose appeared normal. Throat: No exudate or erythema. NECK: Supple. No JVD, no carotid bruit. No lymphadenopathy or thyromegaly. LUNGS: Decreased breath sounds but good air entry. Clear to auscultation. Percussion note normal. Chest symmetrical. HEART: S1, S2, no S3. No murmur. No cyanosis or clubbing. No ascites. Pulses: Dorsalis pedis and posterior tibial pulses +1 to +2 bilaterally. ABDOMEN: Soft. Nontender. Bowel sounds active. No CVA tenderness. No mass felt. EXTREMITIES: No edema. Full range of motion of all extremities, equal. NEUROLOGIC: No focal deficit. Cranial nerves II through XII are grossly intact. No headache, no double vision or headache. SKIN: Not dry. Intact. Turgor - normal. LYMPHATIC: No palpable lymph nodes/no lymphedema. MUSCULOSKELETAL: Normal joints with no swelling. Muscle tone is normal. LABS: Telemetry sinus rhythm, no ST-T wave changes. Echocardiogram showed borderline LVH, LV contractility and normal LV size, Enlarged RV cavity from COPD. PFT showed mild restrictive lung disease. ASSESSMENT: 1. Troponin elevation likely from maybe dehydration with acute gastritis. Seems to be noncardiac cause. RECOMMENDATIONS: 1. Discussed the case with Hospitalist Dr. Catherine. 2. Cardiovascular status is stable. 3. I will sign out of the case. Thank you for referral. RENATA
== END 2022-07-10 13:10 | DRG 641 ==
LOC: ED 12:42 → MEDSURG A 15:01
PROVIDERS: ADMIT Family Medicine; ATTEND Emergency Medicine
DX: M81.0 Age-related osteoporosis without current pathological fracture; G31.84 Mild cognitive impairment of uncertain or unknown etiology; F17.210 Nicotine dependence, cigarettes, uncomplicated; Z20.822 Contact with and (suspected) exposure to COVID-19; E86.0 Dehydration; R10.10 Upper abdominal pain, unspecified; R11.2 Nausea with vomiting, unspecified; R74.8 Abnormal levels of other serum enzymes; R61 Generalized hyperhidrosis; N32.81 Overactive bladder; R53.1 Weakness; J44.1 Chronic obstructive pulmonary disease with (acute) exacerbation; I10 Essential (primary) hypertension; Z51.81 Encounter for therapeutic drug level monitoring; A09 Infectious gastroenteritis and colitis, unspecified; R63.0 Anorexia; Z79.82 Long term (current) use of aspirin; Z79.01 Long term (current) use of anticoagulants; Z79.899 Other long term (current) drug therapy; K21.9 Gastro-esophageal reflux disease without esophagitis; R26.2 Difficulty in walking, not elsewhere classified; R77.8 Other specified abnormalities of plasma proteins